=== PATIENT | male | born 1940 | race Caucasian/White ===

== ENCOUNTER 2018-07-27 22:11 | Inpatient (IN) | payer OTHER ==
[~2018-07-27] VITALS: Ht 165.1 cm; Wt 56.7 kg
[~2018-07-27 22:11] MED LIST: ASPI-1169 PO; ATEN25TA PO; CALC-36 PO; DULO30CA2 PO; FLUT1DIS3 INH; LAMO100T PO; LEVO50TA8 PO; LOVA40TA2 PO; METH5TAB2 PO; MIRT30TA7 PO; NORT10CA PO; OLAN15TA3 PO; OMEP20CA10 PO; TAMS0.4C34 PO; TIMO5DRO4 EACHEYE
--- NOTE | 2018-07-27 22:15 | NUR ---
MD AT BEDSIDE FOR EVALUATION
--- NOTE | 2018-07-27 22:15 | NUR ---
RADIOLOGY AT BEDSIDE FOR CXR
--- NOTE | 2018-07-27 22:15 | NUR ---
PT BIBRA FROM HOME FOR SEVERE SOB. O2 SAT RA 76%, PT ARRIVED ON CPAP. PT RESPONDS TO PAINFUL STIMULI. SKIN COOL AND INTACT. PT PLACED IN GOWN AND ON MONITOR. RT AT BEDSIDE ON ARRIVAL AND ON BIPAP: 15/5, RATE 18, FIO2 100.
[2018-07-27 22:20] VITALS: BP 94/54
--- NOTE | 2018-07-27 22:20 | NUR ---
INITIATED IV SITE RIGHT UPPER ARM 18G. LABS DRAWN FROM SITE. INTACT AND PATENT, CONVERTED TO SALINE LOCK. LAB CALLED FOR SMALL BUSINESS CONSULTANT.
--- NOTE | 2018-07-27 22:25 | NUR ---
BIPAP SETTINGS: 25/5, RATE 18, FIO2 100
[2018-07-27] MEDS ORDERED: LEVOFLOXACIN 750 MG /D5W 150ML 150 ML IV ONE ×2 (22:30→22:33)
[2018-07-27] MEDS ORDERED: AZITHROMYCIN 500 MG in IV D5W 250 ML IV ONE (22:30)
[2018-07-27] MEDS ORDERED: IPRATROPIUM NEB FS 0.5 MG/2.5 ML AMPUL.NEB NEB ONE (22:30)
[2018-07-27] MEDS ORDERED: methylPREDNISolone SOD SUCC 125 MG/2ML VIAL IV ONE (22:30)
[2018-07-27] MEDS ORDERED: ALBUTEROL FS 2.5 MG/3 ML VIAL.NEB CONTNEB ONE (22:30)
[2018-07-27] MEDS ORDERED: IV NS 0.9% 1,000 ML BAG IV ONE (22:30)
[2018-07-27] MEDS ORDERED: IPRATROPIUM NEB FS 0.5 MG/2.5 ML AMPUL.NEB ONE (22:31)
[2018-07-27] MEDS ORDERED: ALBUTEROL FS 2.5 MG/3 ML VIAL.NEB ONE (22:31)
[2018-07-27] MEDS ORDERED: methylPREDNISolone SOD SUCC 125 MG/2ML VIAL ONE (22:33)
[2018-07-27] MEDS ORDERED: AZITHROMYCIN 500 MG VIAL ONE (22:33)
[2018-07-27 22:47] LABS: BASOPHILS % (AUTO) 0.4 % (0.0-2.0); HEMATOCRIT 34 % (39-51); HEMOGLOBIN 10.7 g/dL (13.5-17.5); LYMPHOCYTES # (AUTO) 2.1 /CMM (0.8-4.8); LYMPHOCYTES % (AUTO) 45.3 % (20.0-44.0); MEAN CORPUSCULAR HGB CONC 32 g/dl (31.0-36.0); MEAN CORPUSCULAR VOLUME 109 fL (80-96); MONOCYTES # (AUTO) 0.8 /CMM (0.1-1.30); MONOCYTES % (AUTO) 16.8 % (2.0-12.0); NEUTROPHILS # (AUTO) 1.5 /CMM (1.8-8.9); NEUTROPHILS % (AUTO) 33.5 % (43.0-81.0); PLATELET COUNT (AUTO) 218 /CMM (150-450); RDW COEFFICIENT OF VARIATION 15.3 (11.5-15.0); RED BLOOD CELL COUNT(AUTO) 3.11 MIL/uL (4.5-6.0); WHITE BLOOD COUNT (AUTO) 4.6 K/uL (4.3-11.0)
--- NOTE | 2018-07-27 22:50 | NUR ---
URINE COLLECTED CALLED VIA F/C PER MD ORDER, CALLED LAB FOR CLAIM AUDITOR.
[2018-07-27 22:51] LABS: ABG BASE EXCESS -0.7 mmol/L; ABG OXYGEN SATURATION 99.1 % (92.0-98.5); ABG PH 7.264 (7.350-7.450); ABG PO2 388.1 mmHg (75.0-100.0); AaDO2 263.9 mmHg; COHb 0.1 % (0.5-1.5); MetHb 0.5 % (0.0-1.5); O2Hb 98.5 % (94.0-97.0); SITE, ABG Right Radial; VENT MODE, BG S/T 18 15/5 100%
[2018-07-27 22:52] LABS: CALCIUM, SERUM 9.3 mg/dL (8.5-10.1); CARBON DIOXIDE 30 mmol/L (21-32); CHLORIDE 99 mmol/L (98-107); CREATININE 1.2 mg/dL (0.6-1.3); GLUCOSE 146 mg/dL (74-106); POTASSIUM 4.8 mmol/L (3.5-5.1); SODIUM SERUM 136 mmol/L (136-145); UREA NITROGEN, BLOOD 22 mg/dL (7-18)
--- NOTE | 2018-07-27 22:54 | NUR ---
RT AT BEDSIDE SPEAKING TO DR. PEPE REGARDING ABG RESULTS, PER MY FOR RECHECK ABG X 1 HR
[2018-07-27 22:59] LABS: D-DIMER 1.91 mg/L(FEU (0.17-0.50); INR 0.99 (0.87-1.13)
[2018-07-27 23:00] LABS: TROPONIN I 0.147 ng/mL (0.00-0.056)
[2018-07-27 23:06] LABS: APPEARANCE,URINE CLEAR (CLEAR); BILIRUBIN,URINE NEGATIVE (NEGATIVE); BLOOD, URINE 2+ Ery/uL (NEGATIVE); COLOR,URINE YELLOW (YELLOW); KETONES,URINE NEGATIVE (NEGATIVE); LEUKOCYTE ESTERASE ,URINE NEGATIVE (NEGATIVE); NITRITE, URINE NEGATIVE (NEGATIVE); PROTEIN,URINE NEGATIVE (NEGATIVE); UGLUCOSE NEGATIVE (NEGATIVE); UROBILINOGEN,URINE 0.2 EU/dL (0.2)
[2018-07-27 23:07] LABS: ALANINE AMINOTRANSFERASE 13 U/L (12-78); ALBUMIN 2.7 g/dL (3.4-5.0); ALKALINE PHOSPHATASE 93 U/L (46-116); ASPARTATE AMINOTRANSFERASE 21 U/L (15-37); B-TYPE NATRIURETIC PEPTIDE 4466 PG/ML (0-125); BILIRUBIN,DIRECT 0.1 mg/dL (0.0-0.2); BILIRUBIN,TOTAL 0.3 mg/dL (0.2-1.0); TOTAL PROTEIN, SERUM 9.9 g/dL (6.4-8.2)
--- NOTE | 2018-07-27 23:10 | NUR ---
PER VERBAL MD ORDER, DC IV FLUIDS
[2018-07-27 23:14] LABS: BACTERIA,URINE None seen /HPF (None Seen); SQUAMOUS EPITHELIAL CELL,UR Few /HPF (None Seen); WBC,URINE 0-2 /HPF (0-3)
--- NOTE | 2018-07-27 23:16 | NUR ---
PT RECEIVED FROM FIRE RESCUE ON CPAP. PT PLACED ON BIPAP S/T 18/03 100%. PT PLACED ON ALBUTEROL TX PER MD ORDER. ABG OBTAINED. PRESSURE SUPPORT INCREASED TO 20 POST ABG RESULTS. Addendum: 07/27/18 at 2319 by TRISH ARIAS RT Amended: Links added.
[2018-07-27] MEDS ORDERED: FUROSEMIDE 20 MG/2 ML VIAL ONE (23:24)
[2018-07-27] MEDS ORDERED: DOBUTamine 12.5 MG/ML VIAL IV ONE (23:24)
[2018-07-27 23:29] LABS: EOSINOPHILS % (MANUAL) 4 % (0-4); LYMPHOCYTES % (MANUAL) 48 % (16-48); MONOCYTES % (MANUAL) 12 % (0-11.0); NEUTROPHILS % (MANUAL) 36 (42-76)
[2018-07-27] MEDS ORDERED: D5W IV ONE (23:30)
[2018-07-27] MEDS ORDERED: DOBUTAMINE IV ONE (23:30)
[2018-07-27] MEDS ORDERED: FUROSEMIDE 20 MG/2 ML VIAL IV SCH (23:30)
--- NOTE | 2018-07-27 23:30 | NUR ---
BP LEFT ARM 73/49. RIGHT ARM 107/67. AWARE
[2018-07-27] MEDS ORDERED: IV NS 0.9% 250 ML IV ONE (23:42)
[2018-07-27] MEDS ORDERED: IOHEXOL-350 100 ML VIAL IV ONE (23:42)
[2018-07-27] MEDS ORDERED: CT SWABBABLE VALVE TRANS SET 1 EA INFUS.SET MC ONE (23:42)
--- NOTE | 2018-07-27 23:48 | NUR ---
BP RIGHT ARM 118/62. LEFT ARM 116/66. AWARE
[2018-07-28] VITALS (102 sets, daily range): BP systolic 68–127; BP diastolic 23–81
[2018-07-28] MEDS ORDERED: NITROGLYCERIN PACKET 1 GM PACKET TD ONE
--- NOTE | 2018-07-28 00:03 | NUR ---
BP LEFT ARM: 82/51, RIGHT ARM: 91/44. AWARE
--- NOTE | 2018-07-28 00:09 | NUR ---
PT TO CT ACCOMPANIED BY RN AND RT
--- NOTE | 2018-07-28 00:34 | NUR ---
BP LEFT ARM 131/27, RIGHT ARM 115/64. AWARE
[2018-07-28] MEDS ORDERED: NITROGLYCERIN PACKET 1 GM PACKET ONE (00:51)
--- NOTE | 2018-07-28 00:55 | NUR ---
BP RIGHT AM 109/56 LEFT ARM 70/55. MD AWARE. PER VERBAL MD ORDER, D/C NITRO PACK
[2018-07-28 01:05] LABS: ABG BASE EXCESS -2.2 mmol/L; ABG OXYGEN SATURATION 99.3 % (92.0-98.5); ABG PCO2 65.7 mmHg (35.0-45.0); ABG PH 7.217 (7.350-7.450); ABG PO2 340.4 mmHg (75.0-100.0); AaDO2 306.9 mmHg; COHb 0.5 % (0.5-1.5); MetHb 0.6 % (0.0-1.5); O2Hb 98.2 % (94.0-97.0); SITE, ABG Right Brachial; VENT MODE, BG S/T 18 25/5 100%
--- NOTE | 2018-07-28 01:07 | NUR ---
GAVE REPORT TO ELEONORA SANTOS FOR AMPARO
--- NOTE | 2018-07-28 01:16 | NUR ---
RN NOTE RECEIVED REPORT FROM EMRE ED RN FOR CONTINUITY OF CARE. AWAITING PT ARRIVAL.
[2018-07-28] MEDS ORDERED: PROPOFOL 100 ML IV ONE (01:23)
[2018-07-28] MEDS ORDERED: PROPOFOL 100 ML ONE (01:25)
[2018-07-28] MEDS ORDERED: ETOMIDATE 2 MG/ML VIAL IV ONE ×2 (01:30→08:22)
[2018-07-28] MEDS ORDERED: SUCCINYLCHOLINE CHLORIDE 20 MG/ML VIAL IV ONE ×2 (01:30→08:22)
[2018-07-28] MEDS ORDERED: ACETAMINOPHEN 325 MG TABLET PO PRN (02:00)
[2018-07-28] MEDS ORDERED: MORPHINE SULFATE INJ 2 MG/ML DISP.SYRIN IV PRN (02:00)
--- NOTE | 2018-07-28 02:10 | NUR ---
RN NOTE RECEIVED PT IN NO ACUTE DISTRESS IN BED. PT IS SEDATED ON PROPOFOL. PT IS ON MECHANICAL VENTILATION VIA ETT 7.03/24 AT THE TEETH. PT TOLERATING VENT SETTING WELL @ AC 20, TV 450, FIO2 60, PEEP 5. PT HAS O2 SAT @ 100%. PT HAS F/C THAT IS CLEAN DRY INTACT AND PATENT WITH CLEAR YELLOW URINE DRAINING. PT IS ON TELE MONITORING WITH SR WITH BBB. PT HAS LEFT UPPER ARM 18G THAT IS CLEAN DRY INTACT AND PATENT WITH PROPOFOL @ 20MCG. PT HAS L HAND 20G THAT IS CLEAN DRY INTACT AND PATENT WITH LEVAQUIN RUNNING. PT HAS RAC 20G THAT IS CLEAN DRY INTACT AND PATENT WITH DOBUTAMINE @ 15 MCG INFUSING. NO ADVERSE REACTIONS TO MEDICATION NOTED. BED IN LOW LOCK POSITION WITH RIALS UP X 2. CALL LIGHT WITHIN REACH AND ALL SAFETY MEASURES ENSURED AND CARRIED OUT. WILL CONTINUE TO MONITOR PT.
--- NOTE | 2018-07-28 02:15 | NUR ---
RN NOTE RESTRAINTS PLACED ON PATIENT WITH FREQUENT CIRCULATION CHECKS.
--- NOTE | 2018-07-28 02:18 | NUR ---
PT TRANSFERRED TO ICU 257 WITH RT, EMT, AND RN PER ACLS PROTOCOL
[2018-07-28] MEDS ORDERED: DOBUTamine 500 MG in IV D5W 210 ML IV PRN (02:30)
--- NOTE | 2018-07-28 02:30 | NUR ---
RN NOTE NG TUBE PLACED PER DR. KRUSE ORDERS. POSITIVE PLACEMENT WITH AUSCULTATING AIR PUSHED INTO STOMACH MAKING A GURGLING SOUND AND ASPIRATION OF STOMACH CONTENT.
[2018-07-28] MEDS ORDERED: ALBU18HF2 INH (02:55)
[2018-07-28] MEDS ORDERED: PRED5DRO16 EACHEYE (02:55)
[2018-07-28] MEDS ORDERED: MORP30TA7 PO (02:55)
[2018-07-28] MEDS ORDERED: TIOT4MIS2 IH (02:55)
[2018-07-28] MEDS ORDERED: OLAN5TAB3 PO (02:55)
[2018-07-28] MEDS ORDERED: FLUT16SP BNOSTRILS (02:55)
[2018-07-28] MEDS ORDERED: HYDR4TAB4 PO (02:55)
[2018-07-28] MEDS ORDERED: IV NS 0.9% 100 ML IV ONE (03:00)
[2018-07-28] MEDS ORDERED: PIPERACILLIN /TAZOBACTAM 3.375 G in IV D5W 50 ML IV SCH ×2 (03:00→13:00)
[2018-07-28] MEDS ORDERED: PIPERACILLIN /TAZOBACTAM 3.375 G VIAL IV ONE (03:02)
[2018-07-28] MEDS ORDERED: VANCOMYCIN 1 GM VIAL ONE (03:03)
--- NOTE | 2018-07-28 03:11 | NUR ---
PT INTUBATED POST ABG RESULTS PER MD ORDER.PT PLACED ON CHARTED SETTINGS. ETT SECURED VIA ANCHOR FAST. AMBU BAG AT BEDSIDE ALARMS SET AND AUDIBLE. DISCONNECT ALARMS CHECKED. VENT PLUGGED INTO RED OUTLET. Addendum: 07/28/18 at 0313 by TRISH ARIAS RT Amended: Links added.
[2018-07-28] MEDS ORDERED: VANCOMYCIN 1 GM in IV D5W 250ml IV ONE (03:30)
[2018-07-28] MEDS: PROPOFOL 100 ML IV PRN ×4 (03:31→20:54)
[2018-07-28] MEDS: DOBUTamine 500 MG in IV D5W 210 ML IV PRN ×4 (03:42→20:45)
[2018-07-28 04:20] LABS: BASOPHILS % (AUTO) 0.2 % (0.0-2.0); EOSINOPHILS % (AUTO) 0.5 % (0.0-6.0); HEMATOCRIT 28 % (39-51); HEMOGLOBIN 8.6 g/dL (13.5-17.5); LYMPHOCYTES # (AUTO) 0.5 /CMM (0.8-4.8); LYMPHOCYTES % (AUTO) 19.5 % (20.0-44.0); MEAN CORPUSCULAR HGB CONC 31 g/dl (31.0-36.0); MEAN CORPUSCULAR VOLUME 109 fL (80-96); MONOCYTES # (AUTO) 0.2 /CMM (0.1-1.30); MONOCYTES % (AUTO) 6.7 % (2.0-12.0); NEUTROPHILS % (AUTO) 73.1 % (43.0-81.0); PLATELET COUNT (AUTO) 190 /CMM (150-450); RDW COEFFICIENT OF VARIATION 15.6 (11.5-15.0); RED BLOOD CELL COUNT(AUTO) 2.57 MIL/uL (4.5-6.0); WHITE BLOOD COUNT (AUTO) 2.7 K/uL (4.3-11.0)
[2018-07-28 04:33] LABS: ALANINE AMINOTRANSFERASE 10 U/L (12-78); ALBUMIN 2.1 g/dL (3.4-5.0); ALKALINE PHOSPHATASE 79 U/L (46-116); ASPARTATE AMINOTRANSFERASE 19 U/L (15-37); BILIRUBIN,TOTAL 0.3 mg/dL (0.2-1.0); CALCIUM, SERUM 8.9 mg/dL (8.5-10.1); CARBON DIOXIDE 31 mmol/L (21-32); CHLORIDE 99 mmol/L (98-107); CREATININE 1.2 mg/dL (0.6-1.3); GLUCOSE 138 mg/dL (74-106); MAGNESIUM 1.9 mg/dL (1.8-2.4); PHOSPHORUS 3.4 mg/dL (2.5-4.9); POTASSIUM 4.4 mmol/L (3.5-5.1); SODIUM SERUM 135 mmol/L (136-145); TOTAL PROTEIN, SERUM 8.1 g/dL (6.4-8.2); UREA NITROGEN, BLOOD 22 mg/dL (7-18)
[2018-07-28 04:34] LABS: IRON, SERUM 61 ug/dl (50-175); TOTAL IRON BINDING CAPACITY 180 ug/dl (250-450)
[2018-07-28 04:42] LABS: CHOLESTEROL 105 mg/dL (<200); HDL CHOLESTEROL 37 mg/dL (40-60); LDL 65 mg/dL (0-99); THYROID STIMULATING HORMONE 4.769 uIU/mL (0.358-3.74); TRIGLYCERIDES 35 mg/dL (30-150)
[2018-07-28 04:47] LABS: ABG BASE EXCESS 5.3 mmol/L; ABG OXYGEN SATURATION 97.2 % (92.0-98.5); ABG PCO2 48.1 mmHg (35.0-45.0); ABG PH 7.419 (7.350-7.450); ABG PO2 110.5 mmHg (75.0-100.0); AaDO2 264.4 mmHg; COHb 0.3 % (0.5-1.5); MetHb 0.8 % (0.0-1.5); O2Hb 96.1 % (94.0-97.0); PEEP,BG 5 cm H2O; SITE, ABG Right Radial
--- NOTE | 2018-07-28 04:48 | NUR ---
ABG DONE. RN NOTIFIED WITH THE RESULT.
--- NOTE | 2018-07-28 07:15 | NUR ---
RN INITIAL NOTES RECEIVED PT INTUBATED, ON VENT. NO RESPIRATORY DISTRESS NOTED. NO SOB NOTED. NO SIGNS OF PAIN NOTED. PT SEDATED. ON DIPRIVAN AT 40MCG/KG /MIN. IV LINE IN PLACE. PT ON DOBUTAMINE 15MCG/KG/MIN. WILL TITRATE ACCORDINGLY. FC IN PLACE. NO HEMATURIA NOTED. BLE ELEVATED. PT COMFORTABLE. WILL CONTINUE TO MONITOR.
[2018-07-28] MEDS: LEVALBUTEROL HCL NEB 1.25 MG/0.5 ML VIAL.NEB NEB SCH ×3 (07:37→19:25)
[2018-07-28] MEDS: IPRATROPIUM NEB FS 0.5 MG/2.5 ML AMPUL.NEB NEB SCH ×3 (07:37→19:25)
[2018-07-28] MEDS ORDERED: FEE PK DOSING 1 MIN EA MC ONE (07:45)
[2018-07-28] MEDS: PANTOPRAZOLE 40 MG VIAL IV SCH (08:09)
[2018-07-28] MEDS: ACIDOPHILUS/BULGARICUS 1 EACH TAB.CHEW NG SCH ×2 (08:10→16:56)
[2018-07-28] MEDS: ASPIRIN 81 MG TAB.CHEW NG SCH (08:10)
[2018-07-28] MEDS ORDERED: FUROSEMIDE 20 MG/2 ML VIAL IV SCH (09:00)
--- NOTE | 2018-07-28 09:30 | NUR ---
RN NOTES 899 SEEN AND EXAMINED BY DR DIAMOND. PT INTUBATED, ON VENT. NO RESPIRATORY DISTRESS NOTED. NO SOB NOTED. HOB ELEVATED. PT ON DOBUTAMINE AND DIPRIVAN, WILL TITRATE ACCORDINGLY. AWARE OF CURRENT LAB VALUES AND CXR RESULT. WILL CONTINUE TO MONITOR. 929 SEEN AND EXAMINED BY PHYLLIS GUERRERO. AWARE OF LAB VALUES: WBC 2.7, HGB 8.6, HCT 28, PLATELET 190, SODIUM 135, BUN 22 AND TROPONIN 0.148. ALSO AWARE OF IMAGING STUDIED. PT ON DIPRIVAN AND DOBUTAMINE DRIP, WILL TITRATE ACCORDINGLY. PT SEDATION VACATION DONE. PT ON DIPRIVAN AT 2OMCG/KG/MIN, AWAKE, A/OX1 AND ABLE TO FOLLOW SIMPLE COMMANDS. NOTED WITH AGITATION, TRYING TO PULL OUT ETT. WILL INCREASE DIPRIVAN ACCORDINGLY. WILL CONTINUE TO MONITOR.
[2018-07-28 10:49] LABS: BASOPHILS % (AUTO) 0.3 % (0.0-2.0); EOSINOPHILS % (AUTO) 0.5 % (0.0-6.0); HEMATOCRIT 24 % (39-51); HEMOGLOBIN 8.1 g/dL (13.5-17.5); LYMPHOCYTES # (AUTO) 0.5 /CMM (0.8-4.8); LYMPHOCYTES % (AUTO) 17.3 % (20.0-44.0); MEAN CORPUSCULAR HGB CONC 34 g/dl (31.0-36.0); MEAN CORPUSCULAR VOLUME 103 fL (80-96); MONOCYTES # (AUTO) 0.2 /CMM (0.1-1.30); MONOCYTES % (AUTO) 9.1 % (2.0-12.0); NEUTROPHILS % (AUTO) 72.8 % (43.0-81.0); PLATELET COUNT (AUTO) 171 /CMM (150-450); RDW COEFFICIENT OF VARIATION 14.1 (11.5-15.0); RED BLOOD CELL COUNT(AUTO) 2.34 MIL/uL (4.5-6.0); WHITE BLOOD COUNT (AUTO) 2.7 K/uL (4.3-11.0)
--- NOTE | 2018-07-28 11:04 | NUR ---
WOUND CARE CONSULT: PT PRESENTS WITH LEFT ANKLE ULCER, PRESENT ON ADMISSION. RECOMMEND DPM CONSULT. PT IS INTUBATED. LUBA BAR NOTED. ALL SKIN PROTECTION AND WOUND CARE RECOMMENDATIONS DISCUSSED WITH NURSING STAFF. WILL SEE PRN. [place] IN AGREEMENT WITH PLAN OF CARE. PT ON [facility]. Addendum: 07/28/18 at 1106 by ROSANNE YOUNG WNDNU Amended: Links added.
[2018-07-28 11:39] LABS: BAND % (MANUAL) 7 % (0.0-5.0); LYMPHOCYTES % (MANUAL) 16 % (16-48); MONOCYTES % (MANUAL) 11 % (0-11.0); NEUTROPHILS % (MANUAL) 66 (42-76)
[2018-07-28] MEDS: PIPERACILLIN /TAZOBACTAM 3.375 G in IV D5W 50 ML IV SCH ×3 (12:08→23:33)
[2018-07-28] MEDS: FUROSEMIDE 40 MG/4 ML VIAL IV SCH ×3 (12:08→20:08)
--- NOTE | 2018-07-28 13:00 | NUR ---
RN NOTES NOTIFIED PHYLLIS GUERRERO REGRADING PT'S SBP BET LOW 80-90S. PT ON DOBUTAMINE AT 20MCG/KG/MIN, MAX OUT. PT ON DIPRIVAN AT 30MCG/KG/MIN. ALSO UPDATED ON PT'S LATEST HGB 8.1 AND HCT 24 LEVEL. MASONRY CONTRACTOR ORDERED LEVOPHED PRN FOR MAP >60. PARAMETER OF DOBUTAMINE CHANGED WELL. WILL CLOSELY MONITOR.
[2018-07-28] MEDS: MORPHINE SULFATE INJ 4 MG/ML DISP.SYRIN IV PRN (13:30)
[2018-07-28] MEDS: LORAZEPAM INJ 2 MG/ML VIAL IV PRN (13:39)
--- NOTE | 2018-07-28 14:55 | NUR ---
RN NOTES NOTIFIED DR VALDEZ REGARDING PT'S HR FLUCTUATES FROM 115 TO 120S. PT ON DOBUTAMINE AT 20MCG/KG/MIN. MAP KEPT >60 ORDERED. ON DIPRIVAN AT 20MCG/KG/MIN. MORPHINE GIVEN ORDERED. STAT EKG ORDERED. RESULT RELAYED TO DR VALDEZ AND DR RAMIREZ. AWAITING FOR DR RAMIREZ'S CALL BACK. WILL CONTINUE TO MONITOR.
[2018-07-28] MEDS: VANCOMYCIN 0.75 GM in IV D5W 250 ML IV SCH (15:51)
[2018-07-28] MEDS: NOREPINEPHRINE 16 MG in IV D5W 500 ML IV PRN (17:47)
--- NOTE | 2018-07-28 18:23 | NUR ---
RT END OF THE SHIFT REPORT, PT. 78 Y OLD MALE, INTUBATED WITH ETT # 7.5 @21 CM LIP LINE. WITH NOTED SETTINGS ON VENT, ALARMS SET AND FUNCTIONAL, B/S RALES SUX'D FOR MINIMAL AMT WHITE SECRETIONS AND EQUAL CHEST RISE NOTED, PEEP OFF TO [address] DIAMOND ORDER @6175 PT. CHANDAN. WELL AND NO OTHER RESPIRATORY DISTRESS NOTED. PT REMAIN STABLE WILL CONTINUE FOR MONITOR AND AMBU BAG REMAIN AT TH BEDSIDE. Addendum: 07/28/18 at 1825 by CHANCE CHATMAN RT Amended: Links added.
--- NOTE | 2018-07-28 18:31 | NUR ---
RN CLOSING NOTES PT REMAINS INTUBATED, ON VENT. NO RESPIRATORY DISTRESS NOTED. NO SOB NOTED. NO SIGNS OF PAIN NOTED. PICC LINE IN PLACE. PT ON DIPRIVAN, LEVO AND DOBUTAMINE DRIP. TITRATED ACCORDINGLY. FC IN PLACE. KEPT CLEAN AND DRY. REPOSITIONED Q2. KEPT COMFORTABLE. WILL ENDORSE FOR CONTINUITY OF CARE.
--- NOTE | 2018-07-28 20:00 | NUR ---
Received patient sedated on Diprivan gtt on full vent support at prescribed settings. No acute distress noted.Afebrile.Per monitor ST with BBB 115-120'S.Hemodynamically unstable.Patient on Dobutamine gtt max @ 20 mcg and Levophed gtt at 3 mcg and will titrate accordingly to keep MAP > 60.Keep NPO with NGT R nares clamped.Placement verified. FC to gravity.Patient with good response to lasix diuresing good volume of clear yellow urine. Turned and repositioned.Continue monitoring.
--- NOTE | 2018-07-28 22:00 | NUR ---
Patient agitated.Diprivan gtt titrated.Turned and repositioned.
[2018-07-29] VITALS (115 sets, daily range): BP systolic 73–134; BP diastolic 49–91
--- NOTE | 2018-07-29 | NUR ---
Patient resting .VS stable.RT,Francisco at bedside.FIO2 titrated down to 50%.Patient tolerating well.
[2018-07-29] MEDS: IPRATROPIUM NEB FS 0.5 MG/2.5 ML AMPUL.NEB NEB SCH ×4 (01:28→19:39)
[2018-07-29] MEDS: LEVALBUTEROL HCL NEB 1.25 MG/0.5 ML VIAL.NEB NEB SCH ×2 (01:28→07:51)
[2018-07-29] MEDS: DOBUTamine 500 MG in IV D5W 210 ML IV PRN (02:46)
[2018-07-29] MEDS: PROPOFOL 100 ML IV PRN ×5 (03:18→23:59)
[2018-07-29] MEDS: VANCOMYCIN 0.75 GM in IV D5W 250 ML IV SCH ×2 (04:11→17:58)
[2018-07-29 04:21] LABS: BASOPHILS # (AUTO) 0.1 /CMM (0.0-0.2); BASOPHILS % (AUTO) 1.2 % (0.0-2.0); EOSINOPHILS % (AUTO) 0.4 % (0.0-6.0); HEMATOCRIT 26 % (39-51); HEMOGLOBIN 9.1 g/dL (13.5-17.5); LYMPHOCYTES # (AUTO) 1.4 /CMM (0.8-4.8); MEAN CORPUSCULAR HGB CONC 35 g/dl (31.0-36.0); MEAN CORPUSCULAR VOLUME 104 fL (80-96); MONOCYTES # (AUTO) 1.1 /CMM (0.1-1.30); MONOCYTES % (AUTO) 24.7 % (2.0-12.0); NEUTROPHILS # (AUTO) 1.8 /CMM (1.8-8.9); NEUTROPHILS % (AUTO) 41.7 % (43.0-81.0); PLATELET COUNT (AUTO) 176 /CMM (150-450); RDW COEFFICIENT OF VARIATION 14.6 (11.5-15.0); RED BLOOD CELL COUNT(AUTO) 2.54 MIL/uL (4.5-6.0); WHITE BLOOD COUNT (AUTO) 4.4 K/uL (4.3-11.0)
[2018-07-29 04:47] LABS: ALANINE AMINOTRANSFERASE 10 U/L (12-78); ALBUMIN 2.1 g/dL (3.4-5.0); ALKALINE PHOSPHATASE 75 U/L (46-116); ASPARTATE AMINOTRANSFERASE 16 U/L (15-37); BILIRUBIN,TOTAL 0.4 mg/dL (0.2-1.0); CALCIUM, SERUM 8.3 mg/dL (8.5-10.1); CARBON DIOXIDE 34 mmol/L (21-32); CHLORIDE 94 mmol/L (98-107); CREATININE 1.4 mg/dL (0.6-1.3); GLUCOSE 120 mg/dL (74-106); MAGNESIUM 1.6 mg/dL (1.8-2.4); PHOSPHORUS 3.8 mg/dL (2.5-4.9); POTASSIUM 3.1 mmol/L (3.5-5.1); SODIUM SERUM 132 mmol/L (136-145); TOTAL PROTEIN, SERUM 8.1 g/dL (6.4-8.2); UREA NITROGEN, BLOOD 18 mg/dL (7-18)
[2018-07-29 04:48] LABS: TROPONIN I 0.188 ng/mL (0.00-0.056)
[2018-07-29] MEDS: PIPERACILLIN /TAZOBACTAM 3.375 G in IV D5W 50 ML IV SCH ×4 (05:32→23:59)
[2018-07-29] MEDS: MORPHINE SULFATE INJ 4 MG/ML DISP.SYRIN IV PRN (05:57)
--- NOTE | 2018-07-29 06:30 | NUR ---
Patient resting.Pain medication administered as prn.All due medications given.AM care done. Dobutamine maintained at 20 mcg and Levophed gtt at 11 mcg.Diprivan gtt at 35 mcg. VS stable.Turned and repositioned.
--- NOTE | 2018-07-29 07:51 | NUR ---
RT PT RECEIVED ORALLY INTUBATED WITH A 7.5 ETT SECURED AT 21CM AT THE LIP LINE. PT RESPONDS TO STIMULI WHEN SX'D. VENT ALARMS ARE SET AND AUDIBLE WITH BVM BY BEDSIDE . EQUIPMENT DETAILER CUFF PRESSURE NOTED. VENT IS PLUGGED INTO RED OUTLET. PT SX'D SMALL THICK PALE YELLOW SECRETIONS. NO RESPIRATORY DISTRESS NOTED AT THIS TIME, WILL CONTINUE TO MONITOR. Addendum: 07/29/18 at 12 by DONAVAN SIMON RT Amended: Links added.
[2018-07-29] MEDS: ACIDOPHILUS/BULGARICUS 1 EACH TAB.CHEW NG SCH ×2 (08:09→17:16)
[2018-07-29] MEDS: ASPIRIN 81 MG TAB.CHEW NG SCH (08:09)
[2018-07-29] MEDS: PANTOPRAZOLE 40 MG VIAL IV SCH (08:09)
[2018-07-29] MEDS: POTASSIUM CL. PREMIX PERIPHER. 50 ML IV SCH ×4 (08:10→13:02)
[2018-07-29] MEDS: DAKINS QUARTER STRENGTH (0.125%) 480 ML BOTTLE TOP SCH (08:11)
--- NOTE | 2018-07-29 10:53 | NUR ---
RN NOTE 0720: Received patient, sedated. With ETT to vent, tolerated settings well. No respiratory distress noted at this time. With right NGT intact, clamped. on Dobutamine and Levo, will titrate as ordered. Knutson cath itnact, noted with clebrandi pale colored urine drained to BSD. JW PICC intact, on Diprivan @ 40mcg. ST 120's on the monitor. 0800: S/E by Dr. Macedo, with order to titrate off Dobutamine and change to Dopamine if needed second pressor. 0830: S/E by Dr. Jonas, no new order at this time. 0915: Dobutamine off, On levo @ 14mcg, will titrate as ordered. Rendered sedation vacation, able to respond to verbal stimuli on 30mcg Diprivan, follows commands. Noted with episode of moderate agitation, titrated Diprivan to 50mcg, will continue to monitor. 1050: No any significant changes noted at this time. Kept clean, warm and dry. Needs attended.
--- NOTE | 2018-07-29 11:04 | NUR ---
LEVOPHED GTT OFF DUE TO AIR ACCUMULATION, BP DROPPED TO 56/38, PT PLACED IN REV-TREND. POSITION LEVOPHED GTT TITRATED UP PER PROTOCOL. NOW AT 15 MICS. BP 108/64
[2018-07-29] MEDS: ALBUTEROL HALF STRENGTH 1.25 MG/3 ML VIAL.NEB NEB SCH ×2 (13:12→19:39)
[2018-07-29] MEDS: Magnesium 1GM/D5W 100ML PREMIX 100 ML IV SCH ×3 (13:25→17:10)
[2018-07-29] MEDS: NOREPINEPHRINE 16 MG in IV D5W 500 ML IV PRN (13:36)
[2018-07-29 15:57] LABS: APPEARANCE,URINE CLEAR (CLEAR); BILIRUBIN,URINE NEGATIVE (NEGATIVE); BLOOD, URINE NEGATIVE Ery/uL (NEGATIVE); COLOR,URINE YELLOW (YELLOW); KETONES,URINE NEGATIVE (NEGATIVE); LEUKOCYTE ESTERASE ,URINE NEGATIVE (NEGATIVE); NITRITE, URINE NEGATIVE (NEGATIVE); PH,URINE 7.5 (5.0-8.0); PROTEIN,URINE NEGATIVE (NEGATIVE); UGLUCOSE NEGATIVE (NEGATIVE); UROBILINOGEN,URINE 0.2 EU/dL (0.2)
[2018-07-29 16:06] LABS: CREATININE, URINE < 13.0 MG/DL (30.0-125.0); URINE SODIUM, RANDOM 48 mmol/l (40-220); URINE TOTAL PROTEIN 15.4 mg/dL (0-11.9)
[2018-07-29] MEDS: ACETAMINOPHEN 650 MG/20.3 ML UDC NG PRN (17:15)
[2018-07-29 18:16] LABS: EOSINOPHIL,URINE None Seen
[2018-07-29] MEDS ORDERED: DOPamine 400 MG in IV D5W 250 ML IV PRN (18:30)
--- NOTE | 2018-07-29 18:38 | NUR ---
RN NOTE 1700: Temp 100.5, Tylenol given as ordered, rendered cooling measures. 1830: No any significant changes noted. ETT to vent with 40% FIO2, no respiratory distress noted. On Levo @ 15mcg, Diprivan @ 50mcg. Kept clean, warm and dry. Needs attended.
--- NOTE | 2018-07-29 20:00 | NUR ---
Received patient remains sedated on Diprivan gtt at 50 mcg .With ET to mechanical vent support.Tolerating vent settings well SPO2 100% and secretions suctioned PRN.ST with BBB per monitor.Levophed gtt at 15 mcg for BP support infusing via dannielle picc line and will titrate accordingly.Site intact.Remains npo with NGT patent and clamped.Patient diuresing well to FC via gravity.Turned and repositioned.No distress noted.Continue monitoring.
--- NOTE | 2018-07-29 20:21 | NUR ---
RECEIVED PT INTUBATED 7.5 ETT SECURED AT 21CM AT THE LIP VIA ANCHOR FAST. NO RESP DISTRESS. TOLERATING VENT SETTINGS. SX'D FOR MOD AMT OF THICK STUART SECRETIONS. VENT ALARMS SET AND AUDIBLE. AMBU BAG AT BEDSIDE. WILL CONTINUE TO MONITOR. Addendum: 07/29/18 at 2021 by LUZ MARINA TALLEY RT Amended: Links added.
[2018-07-30] VITALS (106 sets, daily range): BP systolic 79–126; BP diastolic 35–94
--- NOTE | 2018-07-30 | NUR ---
Patient resting feverish T 100.6 cooling measures done.Due antibiotic administered.Turned and repositioned.
[2018-07-30] MEDS: ALBUTEROL HALF STRENGTH 1.25 MG/3 ML VIAL.NEB NEB SCH ×4 (01:14→19:47)
[2018-07-30] MEDS: IPRATROPIUM NEB FS 0.5 MG/2.5 ML AMPUL.NEB NEB SCH ×4 (01:14→19:47)
[2018-07-30] MEDS ORDERED: IV NS 0.9% 250 ML IV ONE (02:30)
[2018-07-30] MEDS: VANCOMYCIN 0.75 GM in IV D5W 250 ML IV SCH (04:00)
[2018-07-30] MEDS: ACETAMINOPHEN 650 MG/20.3 ML UDC NG PRN (04:07)
[2018-07-30 04:11] LABS: BASOPHILS % (AUTO) 0.9 % (0.0-2.0); EOSINOPHILS % (AUTO) 1.4 % (0.0-6.0); HEMATOCRIT 34 % (39-51); HEMOGLOBIN 10.7 g/dL (13.5-17.5); LYMPHOCYTES # (AUTO) 1.5 /CMM (0.8-4.8); LYMPHOCYTES % (AUTO) 27.1 % (20.0-44.0); MEAN CORPUSCULAR HGB CONC 31 g/dl (31.0-36.0); MEAN CORPUSCULAR VOLUME 105 fL (80-96); MONOCYTES # (AUTO) 1.4 /CMM (0.1-1.30); NEUTROPHILS # (AUTO) 2.4 /CMM (1.8-8.9); NEUTROPHILS % (AUTO) 44.6 % (43.0-81.0); PLATELET COUNT (AUTO) 265 /CMM (150-450); RDW COEFFICIENT OF VARIATION 15.2 (11.5-15.0); RED BLOOD CELL COUNT(AUTO) 3.26 MIL/uL (4.5-6.0); WHITE BLOOD COUNT (AUTO) 5.4 K/uL (4.3-11.0)
[2018-07-30 04:31] LABS: ALANINE AMINOTRANSFERASE 12 U/L (12-78); ALBUMIN 2.2 g/dL (3.4-5.0); ALKALINE PHOSPHATASE 80 U/L (46-116); ASPARTATE AMINOTRANSFERASE 19 U/L (15-37); BILIRUBIN,TOTAL 0.4 mg/dL (0.2-1.0); CALCIUM, SERUM 8.9 mg/dL (8.5-10.1); CARBON DIOXIDE 31 mmol/L (21-32); CHLORIDE 97 mmol/L (98-107); CREATININE 1.2 mg/dL (0.6-1.3); GLUCOSE 151 mg/dL (74-106); MAGNESIUM 2.1 mg/dL (1.8-2.4); PHOSPHORUS 2.5 mg/dL (2.5-4.9); POTASSIUM 3.4 mmol/L (3.5-5.1); SODIUM SERUM 136 mmol/L (136-145); TOTAL PROTEIN, SERUM 8.9 g/dL (6.4-8.2); UREA NITROGEN, BLOOD 13 mg/dL (7-18)
[2018-07-30 04:34] LABS: CREATINE KINASE, TOTAL 47 U/L (39-308)
[2018-07-30] MEDS: PROPOFOL 100 ML IV PRN ×3 (04:55→19:18)
[2018-07-30] MEDS: PIPERACILLIN /TAZOBACTAM 3.375 G in IV D5W 50 ML IV SCH ×4 (05:38→23:38)
[2018-07-30] MEDS: NOREPINEPHRINE 16 MG in IV D5W 500 ML IV PRN ×2 (05:59→18:23)
--- NOTE | 2018-07-30 06:10 | NUR ---
Latest temp 99.4.Received a dose of Tylenol at 0407.ST with BBB 103-105.Levophed gtt infusing at 17 mcg and Diprivan gtt at 50 mcg.No acute distress noted.AM care done.Turned and repositioned.
[2018-07-30] MEDS: HYDROCORTISONE SOD SUCCINATE 100 MG/2 ML VIAL IV SCH ×4 (07:34→16:14)
[2018-07-30] MEDS: PANTOPRAZOLE 40 MG VIAL IV SCH (07:35)
[2018-07-30] MEDS: POTASSIUM CL. PREMIX PERIPHER. 50 ML IV SCH ×4 (07:35→10:35)
[2018-07-30] MEDS: DAKINS QUARTER STRENGTH (0.125%) 480 ML BOTTLE TOP SCH (09:37)
[2018-07-30] MEDS: ASPIRIN 81 MG TAB.CHEW NG SCH (09:37)
[2018-07-30] MEDS: ACIDOPHILUS/BULGARICUS 1 EACH TAB.CHEW NG SCH ×2 (09:37→16:14)
[2018-07-30] MEDS: IV D5/ 0.9% NACL 1,000 ML IV PRN (09:53)
--- NOTE | 2018-07-30 10:49 | NUR ---
RN NOTE 0720: Received patient sedated. With ETT to vent, tolerated settings well. With right NGT intact, clamped. ST 100's on the monitor. Knutson cath intact, noted with clear yellow urine drained to BSD. JW PICC intact, on Levo @ 15mcg, will titrate as ordered. On Diprivan @ 50mcg. 0730: Started patient to titrate off sedation for vacation and SIMV trial prep. 0820: Patient is off sedation, able to follow commands, aware for the SIMV trial. RT placed patient on SIMV as ordered. 0900: S/E by Dr. Jonas, said to place back on AC mode, keep off sedation as tolerated. 1030: S/E by Dr. Pennington, no new order at this time. 1045: Patient noted with agitation and moving a lot, will titrate sedation to make patient calm.
[2018-07-30] MEDS: VANCOMYCIN 0.75 GM in IV NS 0.9% 250 ML IV SCH (16:14)
--- NOTE | 2018-07-30 18:12 | NUR ---
RN NOTE No any significant changes noted. ETT to vent, tolerated settings. JW PICC intact, Levo @ 13mcg, SBP 90's. Diprivan @ 40 for episode of agitation, sedated at this time. Knutson cath intact, noted with clear pale yellow urine drained to BSD. Kept clean, warm and dry. Needs attended. Kept call light at reach.
--- NOTE | 2018-07-30 19:30 | NUR ---
RN NOTES RECEIVED PT SEDATED WITH DIPRIVAN. RESPONSIVE TO TACTILE STIMULI AND PAIN. WITH ETT 7.5, 21 CM AT LIP CONNECTED TO VENT SETTING AC 20 TV 450 FIO2 40% TOLERATED WELL SATURATION 100%. TELE MONITOR REVEALS ST WITH PVC'S WITH BBB. IV SITE ON JW PICC LINE WITH DIPRIVAN @ 40 LEVO AT 13 MCG/MIN AND RFA G 18 INTACT AND PATENT. BILATERAL SOFT WRIST RESTRAINT KEPT IN PLACED. KEPT PT CLEAN AND DRY. REPOSITIONED PT SKIN MANAGEMENT. KEPT CLEAN AND DRY.
--- NOTE | 2018-07-30 20:15 | NUR ---
RN NOTES PT HAD MULTIPLE COUPLETS HR 103 WILL CONTINUE TO MONITOR.
--- NOTE | 2018-07-30 20:44 | NUR ---
RECEIVED PT INTUBATED 7.5 ETT SECURED AT 21CM AT THE LIP VIA ANCHOR FAST. NO RESP DISTRESS. TOLERATING VENT SETTINGS. SX'D FOR MOD AMT OF THICK PALE SECRETIONS. VENT ALARMS SET AND AUDIBLE. AMBU BAG AT BEDSIDE. WILL CONTINUE TO MONITOR. Addendum: 07/30/18 at 2044 by LUZ MARINA TALLEY RT Amended: Links added.
[2018-07-30] MEDS: MORPHINE SULFATE INJ 4 MG/ML DISP.SYRIN IV PRN (21:36)
--- NOTE | 2018-07-30 21:40 | NUR ---
RN NOTES PT RUN WITH 10 TOO MANY PVC'S AND BIGEMINY HR 108, PAIN MEDICINE GIVEN PRN. WILL CONTINUE TO MONITOR.
[2018-07-30] MEDS ORDERED: VANCOMYCIN 0.75 GM in IV D5W 250 ML IV SCH (22:00)
[2018-07-31] VITALS (107 sets, daily range): BP systolic 55–136; BP diastolic 27–90
[2018-07-31] MEDS: IPRATROPIUM NEB FS 0.5 MG/2.5 ML AMPUL.NEB NEB SCH ×4 (01:07→19:44)
[2018-07-31] MEDS: ALBUTEROL HALF STRENGTH 1.25 MG/3 ML VIAL.NEB NEB SCH ×4 (01:07→19:44)
[2018-07-31] MEDS: PROPOFOL 100 ML IV PRN ×4 (01:12→18:18)
[2018-07-31] MEDS: IV D5/ 0.9% NACL 1,000 ML IV PRN ×3 (01:17→12:14)
[2018-07-31 03:23] LABS: BASOPHILS % (AUTO) 1.1 % (0.0-2.0); EOSINOPHILS % (AUTO) 0.1 % (0.0-6.0); HEMATOCRIT 35 % (39-51); HEMOGLOBIN 11.2 g/dL (13.5-17.5); LYMPHOCYTES % (AUTO) 24.6 % (20.0-44.0); MEAN CORPUSCULAR HGB CONC 32 g/dl (31.0-36.0); MEAN CORPUSCULAR VOLUME 104 fL (80-96); MONOCYTES # (AUTO) 0.6 /CMM (0.1-1.30); NEUTROPHILS # (AUTO) 2.6 /CMM (1.8-8.9); NEUTROPHILS % (AUTO) 60.2 % (43.0-81.0); PLATELET COUNT (AUTO) 223 /CMM (150-450); RDW COEFFICIENT OF VARIATION 14.6 (11.5-15.0); RED BLOOD CELL COUNT(AUTO) 3.33 MIL/uL (4.5-6.0); WHITE BLOOD COUNT (AUTO) 4.2 K/uL (4.3-11.0)
[2018-07-31 03:35] LABS: CALCIUM, SERUM 8.2 mg/dL (8.5-10.1); CARBON DIOXIDE 29 mmol/L (21-32); CHLORIDE 101 mmol/L (98-107); GLUCOSE 190 mg/dL (74-106); MAGNESIUM 1.9 mg/dL (1.8-2.4); PHOSPHORUS 2.3 mg/dL (2.5-4.9); SODIUM SERUM 138 mmol/L (136-145); UREA NITROGEN, BLOOD 17 mg/dL (7-18)
[2018-07-31 03:54] LABS: POTASSIUM 2.6 mmol/L (3.5-5.1)
[2018-07-31] MEDS: VANCOMYCIN 0.75 GM in IV NS 0.9% 250 ML IV SCH (04:00)
[2018-07-31] MEDS: POTASSIUM CL. PREMIX PERIPHER. 50 ML IV SCH ×4 (04:37→07:19)
[2018-07-31] MEDS: PIPERACILLIN /TAZOBACTAM 3.375 G in IV D5W 50 ML IV SCH ×3 (05:13→18:11)
--- NOTE | 2018-07-31 06:30 | NUR ---
RN NOTES WITH CRITICAL VALUE OF POTASSIUM 2.[address] DYE WITH NEW ORDER TO GIVE POTASSIUM CHLORIDE IV 80 MEQ BOLUS. STILL ONGOING AT THIS TIME WILL ENDORSED CONTINUITY OF CARE TO AM NURSE. REMAINED SR WITH BBB AND PVC'S. CONTINUE WITH IV DIPRIVAN AND PROPOFOL AND NS AT JW PICC LINE TITRATED NEEDED AND TOLERATED WELL.
--- NOTE | 2018-07-31 07:47 | NUR ---
INITIAL APPRENTICE INSTRUMENT TECHNICIAN NOTE RCVD PT SEDATED, INTUBATED ETT 7.5 21 AT UPPER GUMLINE, ST ON MONITOR WITH OCCASIONAL PVC's. TOLERATING ORDERED VENT SETTINGS WELL. VERDUZCO TO GRAVITY DRAINING CLEARM YELLOW URINE. IV SITES C/D/I/PATENT. NO S/O INFILTRATION/PHLEBITIS OBSERVED UPON FLUSHING. IVF, LEVO AND DIPRIVAN INFUSING ORDERED. NG-TUBE PLACEMENT VERIFIED BY AUSCULTATION/ASPIRATION. CLEAR GASTRIC CONTENT OBTAINED. WILL CONTINUE TO MONITOR PT FOR SAFETY AND COMFORT. CALL LIGHT WITHIN REACH. BED IN LOW AND LOCKED POSITION.
[2018-07-31] MEDS: PANTOPRAZOLE 40 MG VIAL IV SCH (07:59)
[2018-07-31] MEDS: HYDROCORTISONE SOD SUCCINATE 100 MG/2 ML VIAL IV SCH ×3 (08:00→16:25)
[2018-07-31] MEDS: ASPIRIN 81 MG TAB.CHEW NG SCH (08:00)
[2018-07-31] MEDS: ACIDOPHILUS/BULGARICUS 1 EACH TAB.CHEW NG SCH ×2 (08:00→16:25)
[2018-07-31] MEDS: POTASSIUM CHLORIDE 20 MEQ POWDER PACKET NG SCH ×5 (08:27→12:42)
[2018-07-31] MEDS: DAKINS QUARTER STRENGTH (0.125%) 480 ML BOTTLE TOP SCH (08:27)
--- NOTE | 2018-07-31 09:21 | NUR ---
hhn deferred zero distress noted
[2018-07-31] MEDS: VANCOMYCIN 500 MG in IV D5W 100 ML IV SCH ×2 (12:13→22:30)
[2018-07-31] MEDS: NOREPINEPHRINE 16 MG in IV D5W 500 ML IV PRN (12:17)
[2018-07-31] MEDS: LORAZEPAM INJ 2 MG/ML VIAL IV PRN (13:38)
--- NOTE | 2018-07-31 13:47 | NUR ---
CUTTER WET MACHINE NOTE SEDATION VACATION DONE. PT PLACED BACK ON SEDATION DUE TO BECOMING TACHYPNEIC AND TACHYCARDIC. PT ABLE TO NOD WHEN ASKED WHETHER HE HEARD OR SEE RN BUT UNABLE TO FOLLOW SIMPLE COMMANDS SUCH SQUEEZING FINGERS WITH EITHER HAND.
[2018-07-31 14:20] LABS: *SPE A/G RATIO 0.5 (0.7-1.7); *SPE ALBUMIN 2.6 g/dL (2.9-4.4); *SPE ALPHA-1-GLOBULIN 0.3 g/dL (0.0-0.4); *SPE ALPHA-2-GLOBULIN 0.9 g/dL (0.4-1.0); *SPE BETA GLOBULIN 2.9 g/dL (0.7-1.3); *SPE GLOBULIN, TOTAL 5.5 g/dL (2.2-3.9); *SPEGAMMA GLOBULIN 1.3 g/dL (0.4-1.8)
[2018-07-31] MEDS ORDERED: NEUTRA PHOS 1 POWD.PACKET GT ONE (15:30)
[2018-07-31] MEDS ORDERED: JEVITY 1.2 CAL 1,000 ML BOTTLE GT PRN (17:00)
--- NOTE | 2018-07-31 18:53 | NUR ---
TELEVISION NEWS REPORTER NOTE PT REMAINS SEDATED, INTUBATED WITH BILATERAL WRIST RESTRAINTS IN PLACE. CIRCULATION CHECKS DONE, PT REMAINS TACHYCARDIC, NG-TUBE PLACEMENT VERIFIED BY AUSCULTATION/ASPIRATION. VERDUZCO TO GRAVITY DRAINING IV SITES REMAIN THE SAME. WELL. PT'S CARE WILL BE ENDORSED TO GROUP MARKETING VP RN FOR CONTINUITY OF CARE. BED IN LOW AND LOCKED POSITION. PT'S , TIFFANI CAME TO VISIT THIS AFTERNOON. SHE WAS UPDATED REGARDING PT'S CONDITION AND VACATION SEDATION OUTCOME.
[2018-07-31] MEDS: JEVITY 1.2 CAL 1,000 ML BOTTLE GT PRN (19:17)
--- NOTE | 2018-07-31 19:20 | NUR ---
RN NOTES PT SEDATED WITH DIPRIVAN. WITH ETT 7.5, 21 CM AT LIP CONNECTED TO VENT SATURATION 100%. TELE MONITOR REVEALS ST WITH BBB AND OCCASIONAL PVC'S. WITH RIGHT NGTF JEVITY 1.2 @ 20 ML/HR PATENCY CHECKED. AND AUSCULTATE. IV SITE ON JW PICC LINE WITH DIPRIVAN @ 40 LEVO AT 18 MCG/MIN AND RFA G 18 INTACT AND PATENT. BILATERAL SOFT WRIST RESTRAINT KEPT IN PLACED. KEPT PT CLEAN AND DRY. REPOSITIONED FOR SKIN MANAGEMENT. KEPT CLEAN AND DRY. BED LOCKED AND IN LOWEST POSITION. F/C DRAINED WITH YELLOW COLOR URINE. WILL CLOSELY MONITOR.
--- NOTE | 2018-07-31 19:45 | NUR ---
PT RECEIVED INTUBATED ON VENT. TOLERATING SETTINGS. SX'D FOR MOD AMT OF THICK STUART SECRETIONS. VENT ALARMS SET AND AUDIBLE. AMBU BAG AT BEDSIDE. VENT PLUGGED INTO RED OUTLET. WILL CONTINUE TO MONITOR. Addendum: 07/31/18 at 1945 by LEO BUSH RT Amended: Links added.
[2018-08-01] VITALS (110 sets, daily range): BP systolic 53–116; BP diastolic 41–81
[2018-08-01] MEDS: PIPERACILLIN /TAZOBACTAM 3.375 G in IV D5W 50 ML IV SCH ×4 (00:18→17:27)
[2018-08-01] MEDS: PROPOFOL 100 ML IV PRN ×5 (00:54→23:05)
[2018-08-01] MEDS: IV D5/ 0.9% NACL 1,000 ML IV PRN ×2 (01:27→11:30)
[2018-08-01] MEDS: IPRATROPIUM NEB FS 0.5 MG/2.5 ML AMPUL.NEB NEB SCH ×4 (01:36→19:50)
[2018-08-01] MEDS: ALBUTEROL HALF STRENGTH 1.25 MG/3 ML VIAL.NEB NEB SCH ×3 (01:36→12:53)
[2018-08-01] MEDS: NOREPINEPHRINE 16 MG in IV D5W 500 ML IV PRN ×2 (01:38→17:27)
[2018-08-01 04:36] LABS: BASOPHILS % (AUTO) 0.3 % (0.0-2.0); HEMATOCRIT 31 % (39-51); LYMPHOCYTES # (AUTO) 1.1 /CMM (0.8-4.8); LYMPHOCYTES % (AUTO) 18.9 % (20.0-44.0); MEAN CORPUSCULAR HGB CONC 32 g/dl (31.0-36.0); MEAN CORPUSCULAR VOLUME 105 fL (80-96); MONOCYTES # (AUTO) 0.8 /CMM (0.1-1.30); MONOCYTES % (AUTO) 14.1 % (2.0-12.0); NEUTROPHILS # (AUTO) 3.7 /CMM (1.8-8.9); NEUTROPHILS % (AUTO) 66.7 % (43.0-81.0); PLATELET COUNT (AUTO) 197 /CMM (150-450); RDW COEFFICIENT OF VARIATION 14.4 (11.5-15.0); RED BLOOD CELL COUNT(AUTO) 2.96 MIL/uL (4.5-6.0); WHITE BLOOD COUNT (AUTO) 5.6 K/uL (4.3-11.0)
[2018-08-01 05:18] LABS: CALCIUM, SERUM 8.1 mg/dL (8.5-10.1); CARBON DIOXIDE 23 mmol/L (21-32); CHLORIDE 106 mmol/L (98-107); CREATININE 1.1 mg/dL (0.6-1.3); GLUCOSE 193 mg/dL (74-106); MAGNESIUM 1.9 mg/dL (1.8-2.4); PHOSPHORUS 3.3 mg/dL (2.5-4.9); POTASSIUM 4.7 mmol/L (3.5-5.1); SODIUM SERUM 137 mmol/L (136-145)
[2018-08-01 05:27] LABS: UREA NITROGEN, BLOOD 23 mg/dL (7-18)
--- NOTE | 2018-08-01 07:00 | NUR ---
RN NOTES PATIENT IN THE SAME CONDITION WITH ETT AND VENT, SETTING TOLERATED WELL SATURATION >92%, TMAX 99.6, ST WITH BBB AND PVC'S. ALL DUE MEDICINE TOLERATED WELL. NGTF JEVITY 1.2 TOLERATED AT 40 ML/HR WITH 15 CC RESIDUAL. HOB KEPT ELEVATED. REPOSITIONED Q2H, BEDBATH DONE WOUND CARE PROVIDED. PT IS CLEAN AND DRY. ENDORSED TO AM SHIFTY FO CONTINUITY OF CARE
--- NOTE | 2018-08-01 07:53 | NUR ---
INITIAL SPIKE MAKER NOTE RCVD PT SEDATED, INTUBATED ETT 7.5 19 AT UPPER GUM LINE. PER CX RADIOLOGIST RECOMMENDS ETT TO BE ADVANCED 5-[address] RHODES CONTACTED WHO AGREED WITH RECOMMENDATION. RT CALLED. PT TOLERATING VENT SETTINGS WELL AT THIS TIME. ST ON MONITOR. NG-TUBE PLACEMENT VERIFIED BY AUSCULTATION/ASPIRATION. NO TUBE FEEDING RESIDUAL OBTAINED. VERDUZCO TO GRAVITY DRAINING CLEAR, YELLOW URINE. JW PICC C/D/I/PATENT. RIGHT FA LEAKING WILL DISCONTINUE. WILL CONTINUE TO MONITOR PT FOR SAFETY AND COMFORT. BED IN LOW AND LOCKED POSITION.
[2018-08-01] MEDS: ACIDOPHILUS/BULGARICUS 1 EACH TAB.CHEW NG SCH ×2 (08:34→17:26)
[2018-08-01] MEDS: ASPIRIN 81 MG TAB.CHEW NG SCH (08:34)
[2018-08-01] MEDS: PANTOPRAZOLE 40 MG VIAL IV SCH (08:34)
[2018-08-01] MEDS: HYDROCORTISONE SOD SUCCINATE 100 MG/2 ML VIAL IV SCH ×3 (08:34→17:26)
[2018-08-01] MEDS: DAKINS QUARTER STRENGTH (0.125%) 480 ML BOTTLE TOP SCH (08:35)
[2018-08-01] MEDS: Z GUARD REMEDY 2 OZ OINT TP PRN (08:35)
--- NOTE | 2018-08-01 08:44 | NUR ---
AUTO TRANSMISSION MECHANIC NOTE RT BRUCE ADVANCE ETT PER RADIOLOGIST'S RECOMMENDATION. PER DR. LOBO BARRIOS TO ORDER CHEST X-RAY TO VERIFY PLACEMENT. ORDER PLACE, RADIOLOGY CALLED. WILL F/U.
[2018-08-01] MEDS: ACETAMINOPHEN 650 MG/20.3 ML UDC NG PRN (09:51)
[2018-08-01] MEDS: MORPHINE SULFATE INJ 4 MG/ML DISP.SYRIN IV PRN ×2 (09:52→17:29)
--- NOTE | 2018-08-01 10:08 | NUR ---
SEDATION VACATION NOTE UNABLE TO START SEDATION VACATION DUE TO CONSISTENT TACHYCARDIA 120'S, PAIN MEASURES TAKEN, REPOSITIONING DONE, WILL CONTINUE TO ASSESS.
[2018-08-01] MEDS: VANCOMYCIN 500 MG in IV D5W 100 ML IV SCH ×2 (11:26→22:59)
[2018-08-01] MEDS: LORAZEPAM INJ 2 MG/ML VIAL IV PRN (12:05)
--- NOTE | 2018-08-01 15:39 | NUR ---
PHARMACY BUYER NOTE WHILE OUT ON BREAK, PT'S EXPERIENCED 19 BEATS OF V-TACH. DR. RAMIREZ INFORMED. HE ACKNOWLEDGE AND GAVE NO NEW ORDERS. WILL CONTINUE TO MONITOR PT.
[2018-08-01] MEDS: LamoTRIgine 100 MG TABLET PO SCH (17:26)
[2018-08-01] MEDS: TIMOLOL 0.5% SOLN OPHTH 5 ML BOTTLE EACHEYE SCH (17:27)
[2018-08-01] MEDS: JEVITY 1.2 CAL 1,000 ML BOTTLE GT PRN (17:31)
[2018-08-01] MEDS: prednisoLONE ACET 1% OPHT DROP 5 ML BOTTLE EACHEYE SCH ×2 (18:28→21:48)
--- NOTE | 2018-08-01 18:28 | NUR ---
RT NOTE PT REMAINS IN STABLE CONDITION. PT MECHANICALLY VENTILATED VIA 7.5 ETT 26CM AT LIP. ETT SECURE. CUFF INFLATED VIA ADVANCED MANAGER. SETTINGS PRESCRIBED. ALARMS SET PER PROTOCOL AND AUDIBLE. AMBU BAG AT BED SIDE. NO DISTRESS NOTED. Addendum: 08/01/18 at 1829 by BRUCE FERMIN RT Amended: Links added.
--- NOTE | 2018-08-01 18:43 | NUR ---
DEVELOPMENT CHEMIST NOTE ATTEMPTED TO PERFORM SEDATION VACATION IN THE AFTERNOON, PT BECAME TACHYCARDIC, RESTLESS, REMAINED DROWSY DURING THIS TIME, ABLE TO FROWN TO PAINFUL STIMULI AND PULL FROM PAINFUL STIMULI. DR. DIAMOND AWARE. PT REMAINS SEDATED, INTUBATED ETT 7.5 24 AT LIP TOLERATING VENT SETTINGS WELL. SR ON MONITOR. NG-TUBE PLACEMENT VERIFIED BY AUSCULTATION/ASPIRATION. NO RESIDUAL DURING SHIFT. TOLERATING TUBE FEEDING RATE. VERDUZCO TO GRAVITY DRAINING CLEAR, YELLOW URINE. BILATERAL SOFT RESTRAINS IN PLACE. CIRCULATION CHECKS DONE. JW PICC C/D/I/PATENT. NO S/O INFILTRATION/ASPIRATION OBSERVED. LEVO, DIPRIVAN INFUSING ORDERED. PT'S CARE WILL BE ENDORSED TO CNC MILL PROGRAMMER RN FOR CONTINUITY OF CARE. BED IN LOW AND LOCKED POSITION.
--- NOTE | 2018-08-01 19:15 | NUR ---
ICU/RN RECEIVED PT ON VENT VIA ORAL ETT W/ FIO2 AT 40%,SATURATION OF 100%.SUCTIONED FOR SCANT AMT.THIN SECRETIONS,PALE YELLOW.ON LEVOPHED DRIP AT 10 MCG/MINUTE,INCREASED TO 12MCG FOR [id number] AT 1999.
--- NOTE | 2018-08-01 19:54 | NUR ---
PT RECEIVED ON VENT. TOLERATING SETTINGS. SX'D FOR MOD AMT OF THICK STUART SECRETIONS. VENT ALARMS SET AND AUDIBLE. AMBU BAG AT BEDSIDE. VENT PLUGGED INTO RED OUTLET. WILL CONTINUE TO MONITOR. Addendum: 08/01/18 at 1954 by LEO BUSH RT Amended: Links added.
--- NOTE | 2018-08-01 20:30 | NUR ---
ICU/RN ZXN=483/74,LEVOPHED AT 12MCG/MIN.MONITOR SHOWS SR W/RARE TO OCCASIONAL PVC'S.REPOSITIONED.
[2018-08-01] MEDS: NORTRIPTYLINE HCL 10 MG CAPSULE PO SCH (22:00)
[2018-08-01] MEDS: ATORVASTATIN 10 MG TABLET GT SCH (22:02)
[2018-08-01] MEDS: OLANZAPINE 5 MG TABLET PO SCH (22:03)
[2018-08-01] MEDS: MIRTAZAPINE 15 MG TABLET PO SCH ×3 (22:04→22:16)
[2018-08-02] VITALS (97 sets, daily range): BP systolic 81–117; BP diastolic 38–78
[2018-08-02] MEDS: PIPERACILLIN /TAZOBACTAM 3.375 G in IV D5W 50 ML IV SCH ×4 (00:06→17:55)
[2018-08-02] MEDS: IPRATROPIUM NEB FS 0.5 MG/2.5 ML AMPUL.NEB NEB SCH ×4 (01:33→19:31)
--- NOTE | 2018-08-02 04:00 | NUR ---
ICU.RN. TOLERATING TUBE FEEDING W/OUT RESIDUAL. 0430 SBP=69/53LEVOPHED INCREASED TO 16MCG/MIN.
[2018-08-02 05:07] LABS: CALCIUM, SERUM 8.4 mg/dL (8.5-10.1); CARBON DIOXIDE 23 mmol/L (21-32); CHLORIDE 110 mmol/L (98-107); GLUCOSE 146 mg/dL (74-106); PHOSPHORUS 3.2 mg/dL (2.5-4.9); POTASSIUM 3.6 mmol/L (3.5-5.1); SODIUM SERUM 143 mmol/L (136-145); UREA NITROGEN, BLOOD 26 mg/dL (7-18)
[2018-08-02 05:26] LABS: HEMATOCRIT 33 % (39-51); HEMOGLOBIN 10.6 g/dL (13.5-17.5); LYMPHOCYTES # (AUTO) 1.1 /CMM (0.8-4.8); MEAN CORPUSCULAR HGB CONC 33 g/dl (31.0-36.0); MEAN CORPUSCULAR VOLUME 110 fL (80-96); MONOCYTES # (AUTO) 1.2 /CMM (0.1-1.30); NEUTROPHILS # (AUTO) 2.9 /CMM (1.8-8.9); PLATELET COUNT (AUTO) 170 /CMM (150-450); RDW COEFFICIENT OF VARIATION 15.3 (11.5-15.0); RED BLOOD CELL COUNT(AUTO) 2.96 MIL/uL (4.5-6.0); WHITE BLOOD COUNT (AUTO) 5.2 K/uL (4.3-11.0)
--- NOTE | 2018-08-02 06:00 | NUR ---
ICU/RN REMAINS ON DIPRIVAN DRIP,INCREASED TO 45MCG.KG/WI.LEVOPHED REINS AT 16MCG/MIN.MONITOR SHOWS STACH W/ RARE-OCC PVC'S.T-MAX 100.2 NOW AT 99.2DEGREES.
[2018-08-02 06:11] LABS: LYMPHOCYTES % (MANUAL) 27 % (16-48); MONOCYTES % (MANUAL) 21 % (0-11.0); NEUTROPHILS % (MANUAL) 52 (42-76)
[2018-08-02] MEDS: PROPOFOL 100 ML IV PRN (06:47)
--- NOTE | 2018-08-02 07:54 | NUR ---
INITIAL BAKER DOUGHNUT NOTE RCVD PT SEDATED ON DIPRIVAN, WITHDRAWS FROM PAINFUL STIMULI, BILATERAL SOFT WRIST RESTRAINTS IN PLACE, INTUBATED ETT 7.5 24 AT LIP. TOLERATING ORDERED VENT SETTINGS WELL. SR ON MONITOR WITH OCCASIONAL PVCs. NG-TUBE PLACEMENT VERIFIED BY CX THIS AM. NO RESIDUAL UPON AUSCULTATION OBTAINED. VERDUZCO TO GRAVITY DRAINING CLEAR, YELLOW URINE. WOUND DRESSINGS C/D/I/. WJ PICC C/D/I/PATENT. NO S/O INFILTRATION/PHLEBITIS OBSERVED LEVO AND DIPRIVAN INFUSING ORDERED. WILL CONTINUE TO MONITOR PT FOR SAFETY AND COMFORT. BED IN LOW AND LOCKED POSITION.
--- NOTE | 2018-08-02 08:10 | NUR ---
RT PATIENT REC'D ORALLY INTUBATED ON [facility] VENT WITH ORDERED SETTINGS CHANDAN WELL. VENT ALARMS CHECKED + AUDIBLE. CUFF CHECKED BROOM STITCHER. B/S DIM. PATIENT AIRWAY SUCTIONED WITH SMALL/MOD AMT OF PALE STUART SEMITHICK SECRETIONS. PATIENT NON VERBAL, NO DISTRESS NOTED AT THIS TIME. AMBU BAG AT [facility]. Addendum: 08/02/18 at 1755 by ROSE REINA RT Amended: Links added.
[2018-08-02] MEDS: PANTOPRAZOLE 40 MG VIAL IV SCH (08:28)
[2018-08-02] MEDS: ASPIRIN 81 MG TAB.CHEW NG SCH (08:29)
[2018-08-02] MEDS: LamoTRIgine 100 MG TABLET PO SCH ×2 (08:29→16:07)
[2018-08-02] MEDS: TAMSULOSIN 0.4 MG CAP.SR.24H PO SCH (08:29)
[2018-08-02] MEDS: ACIDOPHILUS/BULGARICUS 1 EACH TAB.CHEW NG SCH ×2 (08:29→16:07)
[2018-08-02] MEDS: LEVOTHYROXINE SODIUM 50 MCG TABLET PO SCH (08:29)
[2018-08-02] MEDS: DULOXETINE HCL 30 MG CAPSULE.DR GT SCH (08:29)
[2018-08-02] MEDS: HYDROCORTISONE SOD SUCCINATE 100 MG/2 ML VIAL IV SCH ×3 (08:29→16:07)
[2018-08-02] MEDS: prednisoLONE ACET 1% OPHT DROP 5 ML BOTTLE EACHEYE SCH ×4 (08:30→22:18)
[2018-08-02] MEDS: DAKINS QUARTER STRENGTH (0.125%) 480 ML BOTTLE TOP SCH (08:30)
[2018-08-02] MEDS: TIMOLOL 0.5% SOLN OPHTH 5 ML BOTTLE EACHEYE SCH ×2 (08:30→16:08)
[2018-08-02] MEDS ORDERED: ASPIRIN 81 MG TAB.CHEW PO SCH (09:00)
[2018-08-02] MEDS: NOREPINEPHRINE 16 MG in IV D5W 500 ML IV PRN (10:05)
[2018-08-02] MEDS: VANCOMYCIN 500 MG in IV D5W 100 ML IV SCH ×2 (10:07→22:59)
--- NOTE | 2018-08-02 11:57 | NUR ---
SEDATION VACATION NOTE PT OFF SEDATION SINCE 1000, ABLE TO FOLLOW SIMPLE COMMANDS SUCH OPEN EYES, RAISING EYEBROWS, MOVING TONGUE AND MAKING A FIST WITH HAND. PT APPEARS TO ACKNOWLEDGE INFORMATION VERBALIZED TO HIM BY NODDING. VITAL SIGNS REMAIN STABLE. PER DR. DIAMOND WILL KEEP PT OFF SEDATION LONG HIS VITAL SIGNS TOLERATE IT AND GIVE ATIVAN NEEDED. WILL CONTINUE TO MONITOR PT FOR SAFETY AND COMFORT.
[2018-08-02] MEDS: BISACODYL SUPP (10 MG) 10 MG/SUPP.RECT SUPP.RECT RC PRN (12:47)
[2018-08-02] MEDS: ACETAMINOPHEN 650 MG/20.3 ML UDC NG PRN (13:54)
[2018-08-02] MEDS: LORAZEPAM INJ 2 MG/ML VIAL IV PRN ×2 (16:08→22:04)
[2018-08-02] MEDS: JEVITY 1.2 CAL 1,000 ML BOTTLE GT PRN (18:01)
[2018-08-02] MEDS: Z GUARD REMEDY 2 OZ OINT TP PRN (18:02)
--- NOTE | 2018-08-02 18:55 | NUR ---
RUBBER CUTTING MACHINE TENDER NOTE PT REMAINS OFF SEDATION, VITAL SIGNS STABLE, SR ON MONITOR. TOLERATING ORDERED VENT SETTINGS. OFF RESTRAINTS AT THIS TIME. PT OPENS EYES TO NAME, CONTINUES TO ACKNOWLEDGE INSTRUCTIONS WHEN SPOKE TO. VERDUZCO TO GRAVITY DRAINING CLEAR, YELLOW URINE. NG-TUBE PLACEMENT VERIFIED BY AUSCULTATION/ASPIRATION. TOLERATING ORDERED TUBE FEEDING RATE. NO RESIDUAL OBTAINED. JW PICC C/D/I/PATENT. NO S/O INFILTRATION/PHLEBITIS OBSERVED. LEVO TITRATED ORDERED. PT'S CARE WILL BE ENDORSED TO TELEGRAPH EQUIPMENT MAINTAINER RN FOR CONTINUITY OF CARE. BED IN LOW AND LOCKED POSITION. PT'S VISITED EARLIER IN THE DAY AND WAS UPDATED REGARDING PLAN OF CARE BY DR. DIAMOND AND RN. QUESTIONS ENCOURAGED AND ANSWERED TO HER SATISFACTION.
--- NOTE | 2018-08-02 19:33 | NUR ---
PT RECEIVED ON VENT. TOLERATING SETTINGS. SX'D FOR MOD AMT OF THICK STUART SECRETIONS. VENT ALARMS SET AND AUDIBLE. AMBU BAG AT BEDSIDE. VENT PLUGGED INTO RED OUTLET. WILL CONTINUE TO MONITOR. Addendum: 08/02/18 at 1933 by LEO BUSH RT Amended: Links added.
--- NOTE | 2018-08-02 20:00 | NUR ---
SYSTEM ADMINISTRATION MANAGER RCD PT W/DX PNA; PT IS OBTUNDED; RESTRAINTS ARE OFF. NSR ON MONITOR. LEVOPHED AT 10 MCG/MIN. INTUBATED 7.5 @ 24 W/VENT SETTINGS AC 20 450 40%. PT HAS THICK WHITE SECRETIONS; PROVIDED ORAL CARE. RIGHT NARE NG TUBE W/JEVITY 1.2 @ 55 ML/HR; NO RESIDUAL AT THIS TIME. VERDUZCO CATHETER DRAINING ADEQUATE AMOUNT OF YELLOW CLOUDY URINE.
[2018-08-02] MEDS: ATORVASTATIN 10 MG TABLET GT SCH (21:45)
[2018-08-02] MEDS: MIRTAZAPINE 15 MG TABLET PO SCH (21:45)
[2018-08-02] MEDS: OLANZAPINE 5 MG TABLET PO SCH (21:45)
--- NOTE | 2018-08-02 22:04 | NUR ---
ASSISTANT PARALEGAL PT NOTED TO BE WAKING UP DURING SUCTIONING; ATIVAN 0.5 MG IVP GIVEN. CONTINUE TO MONITOR.
[2018-08-02] MEDS: NORTRIPTYLINE HCL 10 MG CAPSULE PO SCH (22:15)
[2018-08-02] MEDS: IV NS 0.9% 250 ML IV PRN (22:59)
[2018-08-03] VITALS (106 sets, daily range): BP systolic 64–138; BP diastolic 33–89
[2018-08-03] MEDS: LORAZEPAM INJ 2 MG/ML VIAL IV PRN ×2 (01:35→17:38)
--- NOTE | 2018-08-03 01:35 | NUR ---
NURSE ASSESSOR PT NOTED TO BE RESTLESS; ATIVAN 0.5 MG IVP GIVEN. CONTINUE TO MONITOR.
[2018-08-03] MEDS: IPRATROPIUM NEB FS 0.5 MG/2.5 ML AMPUL.NEB NEB SCH ×4 (01:36→19:25)
[2018-08-03 04:53] LABS: CALCIUM, SERUM 7.9 mg/dL (8.5-10.1); CARBON DIOXIDE 27 mmol/L (21-32); CHLORIDE 110 mmol/L (98-107); CREATININE 0.9 mg/dL (0.6-1.3); GLUCOSE 175 mg/dL (74-106); SODIUM SERUM 145 mmol/L (136-145); UREA NITROGEN, BLOOD 32 mg/dL (7-18)
[2018-08-03 04:56] LABS: POTASSIUM 2.6 mmol/L (3.5-5.1)
--- NOTE | 2018-08-03 06:00 | NUR ---
FLOOR COVERINGS SALESPERSON PROVIDED ORAL CARE; COMPLETE BED BATH GIVEN. PT TOLERATED WELL.
[2018-08-03] MEDS: PIPERACILLIN /TAZOBACTAM 3.375 G in IV D5W 50 ML IV SCH ×6 (06:15→23:47)
[2018-08-03] MEDS: NOREPINEPHRINE 16 MG in IV D5W 500 ML IV PRN ×2 (06:15→17:07)
--- NOTE | 2018-08-03 06:16 | NUR ---
RELOCATION COMMISSIONER NOTE RELAYED CRITICAL POTASSIUM LEVEL 2.[address] DYE WITH NEW ORDERS RECEIVED potassium 60 mEq IV. NOTIFIED PRIMARY NURSE.
[2018-08-03] MEDS: POTASSIUM CL. PREMIX PERIPHER. 50 ML IV SCH ×2 (06:45→07:53)
[2018-08-03] MEDS: IV NS 0.9% 250 ML IV PRN (06:51)
--- NOTE | 2018-08-03 07:14 | NUR ---
MANAGER REAL ESTATE PT REMAINED ON LEVOPHED AT 10 MCG/MIN ALL THROUGHOUT SHIFT. STARTED POTASSIUM REPLACEMENT.
--- NOTE | 2018-08-03 07:15 | NUR ---
RECEIVED REPORT FROM DANIELLE COLLAZO. PATIENT ETT 7.5 24 LIP WITH VENT SETTINGS PER ORDER. NO SEDATION MEDICATION RUNNING AND PATIENT CONTINUES TO BE LETHARGIC HOWEVER IS FOLLOWING COMMANDS. OPENING EYES, NODDING YES AND NO AND MOVING EXTREMITIES WHEN ASKED. PATIENT NODS NO TO PAIN AND APPEARS CALM AND COOPERATIVE. LEVOPHED RUNNING PER SPREADSHEET AND CONTINUING TO TITRATE PER PROTOCOL. PATIENT NSR AT THIS TIME. RNARE FEEDING TUBE IN PLACE AND RUNNING JEVITY 1.2 AT 55 WITH MINIMAL RESIDUAL NOTED. VERDUZCO CATH IN PLACE C/D/I/P. JW PICC C/D/I/P WITH BLOOD RETURN. CURRENTLY REPLACING POTASSIUM PER ORDER.SAFETY, SKIN, AND ASPIRATION PRECAUTIONS IN PLACE. WILL MONITOR
--- NOTE | 2018-08-03 07:33 | NUR ---
RT NOTE RECEIVED PT MECHANICALLY VENTILATED VIA 7.5 ETT 26 CM AT LIP. CUFF INFLATED. ETT SECURE. SETTINGS PRESCRIBED. ALARMS SET PER PROTOCOL AND AUDIBLE. VENT PLUGGED IN TO RED OUTLET. AMBU BAG AT BED SIDE. NO DISTRESS NOTED AT MOMENT. Addendum: 08/03/18 at 0735 by BRUCE FERIMN RT Amended: Links added.
[2018-08-03] MEDS: PANTOPRAZOLE 40 MG VIAL IV SCH (07:53)
[2018-08-03] MEDS: LEVOTHYROXINE SODIUM 50 MCG TABLET PO SCH (07:53)
[2018-08-03] MEDS: ASPIRIN 81 MG TAB.CHEW NG SCH (08:20)
[2018-08-03] MEDS: HYDROCORTISONE SOD SUCCINATE 100 MG/2 ML VIAL IV SCH ×3 (08:20→16:11)
[2018-08-03] MEDS: TAMSULOSIN 0.4 MG CAP.SR.24H PO SCH (08:20)
[2018-08-03] MEDS: DULOXETINE HCL 30 MG CAPSULE.DR GT SCH (08:20)
[2018-08-03] MEDS: LamoTRIgine 100 MG TABLET PO SCH ×2 (08:20→16:11)
[2018-08-03] MEDS: ACIDOPHILUS/BULGARICUS 1 EACH TAB.CHEW NG SCH ×2 (08:20→16:11)
[2018-08-03] MEDS: prednisoLONE ACET 1% OPHT DROP 5 ML BOTTLE EACHEYE SCH ×4 (08:22→21:03)
[2018-08-03] MEDS: DAKINS QUARTER STRENGTH (0.125%) 480 ML BOTTLE TOP SCH (08:22)
[2018-08-03] MEDS: TIMOLOL 0.5% SOLN OPHTH 5 ML BOTTLE EACHEYE SCH ×2 (08:22→16:15)
--- NOTE | 2018-08-03 08:53 | NUR ---
dr ford at bedside. per md discontinue ivpb 60meq potassium and continue with his order of 120meq ngtube. md aware 20meq given already.
[2018-08-03] MEDS: POTASSIUM CHLORIDE 20 MEQ POWDER PACKET NG SCH ×6 (09:34→14:00)
[2018-08-03] MEDS: VANCOMYCIN 500 MG in IV D5W 100 ML IV SCH (10:34)
[2018-08-03] MEDS ORDERED: POTASSIUM CHLORIDE 20 MEQ POWDER PACKET GT ONE (15:30)
[2018-08-03] MEDS: JEVITY 1.2 CAL 1,000 ML BOTTLE GT PRN (17:07)
[2018-08-03] MEDS: Z GUARD REMEDY 2 OZ OINT TP PRN (17:07)
--- NOTE | 2018-08-03 19:14 | NUR ---
ALL DUE MEDS GIVEN AND ALL NEEDS MET. PATIENT VENT SETTINGS PER ORDER AND TOLERATING WELL. LEVOPHED RUNNING PER ORDER. TUBE FEEDING PER ORDER NO RESIDUAL NOTED. SAFETY, SKIN, AND ASPIRATION PRECAUTIONS MONITORED THROUGHOUT DAY. CARE ENDORSED TO RN FOR AMPARO
--- NOTE | 2018-08-03 20:00 | NUR ---
ASSEMBLER GOLF WOOD HEAD - NOTES - RECEIVED PATIENT ETT 7.5 24 LIP WITH VENT SETTINGS PER ORDER. NO SEDATION MEDICATION RUNNING AND PATIENT IS AWAKE AND FOLLOWING COMMANDS. OPENING EYES, NODDING YES AND NO AND MOVING EXTREMITIES WHEN ASKED. PATIENT NODS NO TO PAIN AND APPEARS CALM AND COOPERATIVE. LEVOPHED RUNNING PER SPREADSHEET AND CONTINUING TO TITRATE PER PROTOCOL. PATIENT NSR/ST AT THIS TIME. R NARE FEEDING TUBE IN PLACE AND RUNNING JEVITY 1.2 AT 55 WITH MINIMAL RESIDUAL NOTED. VERDUZCO CATH IN PLACE C/D/I/P. JW PICC C/D/I/P WITH BLOOD RETURN. CURRENTLY REPLACING POTASSIUM PER ORDER.SAFETY, SKIN, AND ASPIRATION PRECAUTIONS IN PLACE. WILL MONITOR
[2018-08-03] MEDS: MIRTAZAPINE 15 MG TABLET PO SCH (21:02)
[2018-08-03] MEDS: OLANZAPINE 5 MG TABLET PO SCH (21:02)
[2018-08-03] MEDS: NORTRIPTYLINE HCL 10 MG CAPSULE PO SCH (21:03)
[2018-08-03] MEDS: MORPHINE SULFATE INJ 4 MG/ML DISP.SYRIN IV PRN (23:47)
[2018-08-04] VITALS (105 sets, daily range): BP systolic 50–149; BP diastolic 20–111
[2018-08-04] MEDS: IPRATROPIUM NEB FS 0.5 MG/2.5 ML AMPUL.NEB NEB SCH ×4 (01:53→19:35)
[2018-08-04 04:57] LABS: CALCIUM, SERUM 8.4 mg/dL (8.5-10.1); CARBON DIOXIDE 29 mmol/L (21-32); CHLORIDE 111 mmol/L (98-107); GLUCOSE 114 mg/dL (74-106); SODIUM SERUM 145 mmol/L (136-145); UREA NITROGEN, BLOOD 37 mg/dL (7-18)
[2018-08-04] MEDS: PIPERACILLIN /TAZOBACTAM 3.375 G in IV D5W 50 ML IV SCH ×4 (05:51→23:30)
--- NOTE | 2018-08-04 06:46 | NUR ---
RT PT RECEIVED INTUBATED ON [facility] VENT WITH NOTED SETTING.ETT PATENT AND SECURE VIA ANCHOR FAST. PT TOLERATING SETTING WELL. NO SOB OR RESP DISTRESS NOTED ON SHIFT. VENT TO RED OUTLET. ALARM SET AND AUDIBLE. Addendum: 08/04/18 at 0647 by STARR KHAN RT Amended: Links added.
--- NOTE | 2018-08-04 07:00 | NUR ---
RECEIVED PATIENT INTUBATED 7.03/27 LIP LINE TOLERATING VENT SETTINGS. PATIENT IS MUCH MORE AWAKE TODAY. EYES OPENING SPONTANEOUSLY. FOLLOWING COMMANDS AND MOVING ALL EXTREMITIES. PATIENT NODS NO TO PAIN AND IS CALM AND COOPERATIVE AT THIS TIME. AT NIGHT PER RN PATIENT HAD PERIODS OF RESTLESSNESS. PATIENT RESTARTED ON LEVOPHED AND WILL TITRATE PER PROTOCOL. VERDUZCO CATH IN PLACE DRAINING TO GRAVITY. TUBE FEEDING PER ORDER AND TOLERATING WELL NO RESIDUAL NOTED. JW PICC LINE C/D/I/P AND GOOD BLOOD RETURN NOTED. SAFETY, SKIN, AND ASPIRATION PRECAUTIONS IN PLACE AND MONITORING.
[2018-08-04] MEDS: DULOXETINE HCL 30 MG CAPSULE.DR GT SCH (08:04)
[2018-08-04] MEDS: LEVOTHYROXINE SODIUM 50 MCG TABLET PO SCH (08:04)
[2018-08-04] MEDS: PANTOPRAZOLE 40 MG VIAL IV SCH (08:04)
[2018-08-04] MEDS: ACIDOPHILUS/BULGARICUS 1 EACH TAB.CHEW NG SCH ×2 (08:04→16:43)
[2018-08-04] MEDS: prednisoLONE ACET 1% OPHT DROP 5 ML BOTTLE EACHEYE SCH ×4 (08:04→20:41)
[2018-08-04] MEDS: ASPIRIN 81 MG TAB.CHEW NG SCH (08:04)
[2018-08-04] MEDS: HYDROCORTISONE SOD SUCCINATE 100 MG/2 ML VIAL IV SCH ×3 (08:04→16:43)
[2018-08-04] MEDS: LamoTRIgine 100 MG TABLET PO SCH ×2 (08:04→16:43)
[2018-08-04] MEDS: TAMSULOSIN 0.4 MG CAP.SR.24H PO SCH (08:04)
[2018-08-04] MEDS: TIMOLOL 0.5% SOLN OPHTH 5 ML BOTTLE EACHEYE SCH ×2 (08:05→16:41)
[2018-08-04] MEDS: DAKINS QUARTER STRENGTH (0.125%) 480 ML BOTTLE TOP SCH (08:05)
[2018-08-04] MEDS: Z GUARD REMEDY 2 OZ OINT TP PRN ×2 (08:05→16:49)
[2018-08-04] MEDS: IV NS 0.9% 250 ML IV PRN (08:07)
[2018-08-04 11:08] LABS: ABG BASE EXCESS 3.7 mmol/L; ABG OXYGEN SATURATION 95.7 % (92.0-98.5); ABG PCO2 37.2 mmHg (35.0-45.0); ABG PH 7.483 (7.350-7.450); ABG PO2 84.6 mmHg (75.0-100.0); AaDO2 157.8 mmHg; COHb 0.3 % (0.5-1.5); MetHb 0.4 % (0.0-1.5); PEEP,BG 5 cm H2O; SITE, ABG Right Radial; VENT MODE, BG SIMV PS15; VT, ABG 450 mL
--- NOTE | 2018-08-04 11:48 | NUR ---
PER DR DIAMOND SIT PATIENT UP. IF BLOOD PRESSURE STABLE ABOVE 90'S OK TO EXTUBATE. SAT PATIENT UP. VS CONTINUE TO BE STABLE. PATIENT ALERT AND AWAKE RT CHANCE AWARE OF EXTUBATION ORDERS.
--- NOTE | 2018-08-04 12:12 | NUR ---
PATIENT SUCCESSFULLY EXTUBATED NO COMPLICATIONS NOTED. PATIENT 98% ON NASAL CANNULA PATIENT GAG AND COUGH REFLEXES INTACT. NO DISTRESS NOTED. NO SOB. ABLE TO CLEAR OWN SECRETIONS AT THIS TIME. WILL CONTINUE TO MONITOR CLOSELY
[2018-08-04] MEDS: ACETAMINOPHEN 650 MG/20.3 ML UDC NG PRN (12:22)
--- NOTE | 2018-08-04 13:40 | NUR ---
S/P EXTUBATION ABG RELAYED TO DR DIAMOND. NO NEW ORDERS. KEEP PATIENT ON LOW FLOW OXYGEN. AIRWAY PATENT
[2018-08-04 13:55] LABS: ABG BASE EXCESS 2.4 mmol/L; ABG OXYGEN SATURATION 95.5 % (92.0-98.5); ABG PCO2 36.7 mmHg (35.0-45.0); ABG PH 7.469 (7.350-7.450); ABG PO2 83.9 mmHg (75.0-100.0); AaDO2 130.2 mmHg; COHb 0.3 % (0.5-1.5); MetHb 0.6 % (0.0-1.5); O2Hb 94.6 % (94.0-97.0); SITE, ABG Left Radial; VENT MODE, BG N/C
[2018-08-04] MEDS: JEVITY 1.2 CAL 1,000 ML BOTTLE GT PRN (16:43)
[2018-08-04] MEDS: NOREPINEPHRINE 16 MG in IV D5W 500 ML IV PRN (18:20)
--- NOTE | 2018-08-04 18:32 | NUR ---
PT. 78 Y OLD MALE AWAKE AND RESPONSIVE @0700 RECEIVED ON VENT. CHANDAN WITH NOTED SETTINGS. @0800 START WEANING ON SIMV MODE. PER DR. DIAMOND ORDER. SX'D FOR MOD AMT OF THICK STUART SECRETIONS. VENT ALARMS SET AND FUNCTIONAL. B/S FINE RALES/CLEAR ON BASES BILATERALLY, @1210 PT. EXTUBATED AND PLACED ON 4L/MIN O2 PER MD ORDER AND TITRATED DOWN TO 2 L/MIN T/O SHIFT. (NO MED GIVEN AT 1300 DUE TO SLEEPING AND REST PER PT. REQUEST) PT. REMAIN STABLE. AMBU BAG AND VENT STAND BY PER MD REQUEST. WILL CONTINUE TO MONITOR. REPORT WILL PASS TO PM SHIFT Addendum: 08/04/18 at 1836 by CHANCE CHATMAN RT Amended: Links added.
--- NOTE | 2018-08-04 19:18 | NUR ---
ALL DUE MEDS GIVEN AND ALL NEEDS MET. PATIENT STABLE ON LOW FLOW OXYGEN NO SOB, DIFFICULTY BREATHING OR PAIN. PATIENT AWAKE AND ALERT. ORIENTED TO SELF, PLACE. PATIENT CONTINUES ON LEVO 10MCG/MIN. WHEN OFF PATIENT HYPOTENSIVE IN 70'S. SAFETY, SKIN, AND ASPIRATION PRECAUTIONS MONITORED THROUGHOUT DAY. CARE ENDORSED TO RN FOR AMPARO
[2018-08-04] MEDS: MORPHINE SULFATE INJ 4 MG/ML DISP.SYRIN IV PRN (20:40)
--- NOTE | 2018-08-04 21:36 | NUR ---
RECEIVED PT ON 2L NC. PT IS AWAKE AND ALERT NO SOB. PT IS RECEIVING Q6 BREATHING TX. WILL CONTINUE TO MONITOR.
[2018-08-04] MEDS: NORTRIPTYLINE HCL 10 MG CAPSULE PO SCH (21:42)
[2018-08-04] MEDS: MIRTAZAPINE 15 MG TABLET PO SCH (21:42)
[2018-08-04] MEDS: OLANZAPINE 5 MG TABLET PO SCH (21:42)
[2018-08-04] MEDS: LORAZEPAM INJ 2 MG/ML VIAL IV PRN (22:45)
[2018-08-05] VITALS (95 sets, daily range): BP systolic 52–128; BP diastolic 26–90
[2018-08-05] MEDS: IPRATROPIUM NEB FS 0.5 MG/2.5 ML AMPUL.NEB NEB SCH ×4 (01:02→19:38)
--- NOTE | 2018-08-05 01:38 | NUR ---
PT PLACED ON SM 6L DO TO LOW O2 SAT. SX'D FOR LARGE AMT OF THIN FROTHY TINGED SECRETIONS. RN NOTIFIED.
[2018-08-05 02:01] LABS: ABG BASE EXCESS 0.5 mmol/L; ABG OXYGEN SATURATION 95.6 % (92.0-98.5); ABG PCO2 59.1 mmHg (35.0-45.0); ABG PH 7.292 (7.350-7.450); ABG PO2 98.6 mmHg (75.0-100.0); AaDO2 147.8 mmHg; COHb 0.3 % (0.5-1.5); MetHb 0.6 % (0.0-1.5); O2Hb 94.7 % (94.0-97.0); SITE, ABG Right Radial; VENT MODE, BG SM
--- NOTE | 2018-08-05 02:02 | NUR ---
ABG DONE. RN NOTIFIED WITH THE RESULT.
--- NOTE | 2018-08-05 02:15 | NUR ---
RN NOTES PATIENT NOTED WITH CRACKLES ON LUNG AUSCULTATION, NOTED LABORED BREATHING. HOB ELEVATED AT 40 DEGREES. ABG DONE WITH PH = 7.29, PCO2 = 59.1 AND HCO3 27.9/ O2 SAT 98% ON 6LPM SIMPLE MASK. SBP AROUND 85 TO 110 ON 14MCG OF LEVOPHED. NOTIFIED DR DYE. SUGGESTED BIPAP AND/OR LASIX. DR DYE ORDER TO PUT PATIENT ON BIPAP THEN RECHECK ABG AFTER 2 HOURS OF PUTTING THE BIPAP. ORDERS NOTED AND CARRIED OUT.
--- NOTE | 2018-08-05 02:28 | NUR ---
PT PLACED ON BIPAP PER MD ORDER POST ABG RESULTS. WITH CHARTED SETTINGS. AMBU BAG AT BEDSIDE. ALARMS SET AND AUDIBLE. PLUGGED INTO RED OUTLET. Addendum: 08/05/18 at 0230 by TRISH ARIAS RT Amended: Links added.
[2018-08-05 05:00] LABS: CALCIUM, SERUM 8.6 mg/dL (8.5-10.1); CARBON DIOXIDE 29 mmol/L (21-32); CHLORIDE 112 mmol/L (98-107); CREATININE 1.1 mg/dL (0.6-1.3); GLUCOSE 166 mg/dL (74-106); POTASSIUM 3.9 mmol/L (3.5-5.1); SODIUM SERUM 148 mmol/L (136-145); UREA NITROGEN, BLOOD 47 mg/dL (7-18)
[2018-08-05 05:01] LABS: ABG BASE EXCESS 3.2 mmol/L; ABG OXYGEN SATURATION 91.6 % (92.0-98.5); ABG PCO2 47.5 mmHg (35.0-45.0); ABG PH 7.398 (7.350-7.450); ABG PO2 68.3 mmHg (75.0-100.0); AaDO2 89.8 mmHg; COHb 0.3 % (0.5-1.5); MetHb 0.5 % (0.0-1.5); O2Hb 90.9 % (94.0-97.0)
--- NOTE | 2018-08-05 05:02 | NUR ---
PT POST ABG ON BIPAP DONE. NOTIFIED RN WITH THE RESULT.
[2018-08-05] MEDS: PIPERACILLIN /TAZOBACTAM 3.375 G in IV D5W 50 ML IV SCH ×3 (05:32→17:51)
[2018-08-05 09:31] LABS: ABG BASE EXCESS 1.9 mmol/L; ABG PCO2 39.4 mmHg (35.0-45.0); ABG PO2 56.1 mmHg (75.0-100.0); AaDO2 111.5 mmHg; COHb 0.3 % (0.5-1.5); MetHb 0.6 % (0.0-1.5); O2Hb 87.2 % (94.0-97.0); SITE, ABG Right Radial
[2018-08-05] MEDS: LEVOTHYROXINE SODIUM 50 MCG TABLET PO SCH (09:58)
[2018-08-05] MEDS: PANTOPRAZOLE 40 MG VIAL IV SCH (09:58)
[2018-08-05] MEDS: DULOXETINE HCL 30 MG CAPSULE.DR GT SCH (09:58)
[2018-08-05] MEDS: LamoTRIgine 100 MG TABLET PO SCH ×2 (09:58→17:50)
[2018-08-05] MEDS: TAMSULOSIN 0.4 MG CAP.SR.24H PO SCH (09:58)
[2018-08-05] MEDS: ACIDOPHILUS/BULGARICUS 1 EACH TAB.CHEW NG SCH ×2 (09:58→17:50)
[2018-08-05] MEDS: ASPIRIN 81 MG TAB.CHEW NG SCH (09:58)
[2018-08-05] MEDS: HYDROCORTISONE SOD SUCCINATE 100 MG/2 ML VIAL IV SCH ×3 (09:58→17:50)
[2018-08-05] MEDS: prednisoLONE ACET 1% OPHT DROP 5 ML BOTTLE EACHEYE SCH ×4 (09:59→21:53)
[2018-08-05] MEDS: TIMOLOL 0.5% SOLN OPHTH 5 ML BOTTLE EACHEYE SCH ×2 (09:59→17:51)
[2018-08-05] MEDS: DAKINS QUARTER STRENGTH (0.125%) 480 ML BOTTLE TOP SCH (10:00)
--- NOTE | 2018-08-05 10:35 | NUR ---
PT GRADUALLY LESS RESPONSIVE, ASSESSED BY DR. DIAMOND, BASED ON PREVIOUS CONVERSATION WITH HIS IT IS OK TO RE-INTUBATE. PT PREMEDICATED FOR INTUBATION WITH 20MG OF ETOMIDATE AND 100 OF SUCCINYL. PT INTUBATED AT [address] MILNER. ETT 7.5 24 CM. BILATERAL BREATH SOUNDS +. CXR PENDING.
[2018-08-05] MEDS: PROPOFOL 100 ML IV PRN ×2 (11:21→19:03)
[2018-08-05 11:56] LABS: ABG BASE EXCESS 3.3 mmol/L; ABG OXYGEN SATURATION 98.4 % (92.0-98.5); ABG PCO2 55.2 mmHg (35.0-45.0); ABG PH 7.349 (7.350-7.450); AaDO2 419.8 mmHg; COHb 0.3 % (0.5-1.5); MetHb 0.8 % (0.0-1.5); O2Hb 97.3 % (94.0-97.0); PEEP,BG 0 cm H2O; SITE, ABG Right Radial; VENT MODE, BG AC 16 450 1005 +0; VT, ABG 450 mL
[2018-08-05] MEDS: NOREPINEPHRINE 16 MG in IV D5W 500 ML IV PRN (12:41)
[2018-08-05] MEDS: IV NS 0.9% 250 ML IV PRN (12:46)
--- NOTE | 2018-08-05 18:16 | NUR ---
RT END OF THE SHIFT REPORT: PT. 78 Y OLD MALE REC. ON BIPAP WITH NOTED SETTINGS, POST ABG @ [address] DIAMOND AT THE BEDSIDE. 23/03, FIO2 50% @1032 X3 RT AT THE BEDSIDE. ASSIST ER FOR INTUBATION ETT# 7.5 @ 24 CM LIPLINE PLACED ON VENT WITH NOTED SETTINGS, SX'D FOR MOD AMT OF THICK/THIN RED BLOODY SECRETIONS. VENT ALARMS SET AND FUNCTIONAL. B/S RALES BILATERALLY, VENT CHANGES DONE PER DR. DIAMOND ORDER, AND RN INFORMED ALL THE CHANGES. AMBU BAG AT BEDSIDE. VENT PLUGGED INTO RED OUTLET. HME CHANGED, PT. REMAIN STABLE. WILL CONTINUE TO MONITOR. REPORT WILL PASS TO PM SHIFT. Addendum: 08/05/18 at 1821 by CHANCE CHATMAN RT Amended: Links added.
[2018-08-05] MEDS: JEVITY 1.2 CAL 1,000 ML BOTTLE GT PRN (19:03)
--- NOTE | 2018-08-05 20:32 | NUR ---
RECEIVED PT INTUBATED WITH 7.5 ETT SECURED @24CM AT THE LIP VIA ANCHOR FAST. PT TOLERATING VENT SETTINGS. SX'D FOR MOD AMT OF THIN TINGED FROTHY SECRETIONS. VENT ALARMS SET AND AUDIBLE. AMBU BAG AT BEDSIDE. WILL CONTINUE TO MONITOR. Addendum: 08/05/18 at 2033 by LUZ MARINA TALLEY RT Amended: Links added.
[2018-08-05] MEDS: OLANZAPINE 5 MG TABLET PO SCH (21:53)
[2018-08-05] MEDS: NORTRIPTYLINE HCL 10 MG CAPSULE PO SCH (21:54)
[2018-08-05] MEDS: MIRTAZAPINE 15 MG TABLET PO SCH (21:54)
[2018-08-06] VITALS (110 sets, daily range): BP systolic 90–118; BP diastolic 35–80
[2018-08-06] MEDS: PIPERACILLIN /TAZOBACTAM 3.375 G in IV D5W 50 ML IV SCH ×4 (00:17→17:22)
[2018-08-06] MEDS: NOREPINEPHRINE 16 MG in IV D5W 500 ML IV PRN ×3 (00:33→18:55)
[2018-08-06] MEDS: IPRATROPIUM NEB FS 0.5 MG/2.5 ML AMPUL.NEB NEB SCH ×4 (00:49→19:48)
[2018-08-06 04:56] LABS: BASOPHILS % (AUTO) 0.2 % (0.0-2.0); EOSINOPHILS % (AUTO) 0.1 % (0.0-6.0); HEMATOCRIT 27 % (39-51); HEMOGLOBIN 8.9 g/dL (13.5-17.5); LYMPHOCYTES % (AUTO) 22.2 % (20.0-44.0); MEAN CORPUSCULAR HGB CONC 33 g/dl (31.0-36.0); MEAN CORPUSCULAR VOLUME 110 fL (80-96); MONOCYTES # (AUTO) 0.6 /CMM (0.1-1.30); MONOCYTES % (AUTO) 13.7 % (2.0-12.0); NEUTROPHILS # (AUTO) 2.9 /CMM (1.8-8.9); NEUTROPHILS % (AUTO) 63.8 % (43.0-81.0); PLATELET COUNT (AUTO) 205 /CMM (150-450); RDW COEFFICIENT OF VARIATION 15.5 (11.5-15.0); RED BLOOD CELL COUNT(AUTO) 2.46 MIL/uL (4.5-6.0); WHITE BLOOD COUNT (AUTO) 4.5 K/uL (4.3-11.0)
[2018-08-06 04:58] LABS: CALCIUM, SERUM 7.8 mg/dL (8.5-10.1); CARBON DIOXIDE 27 mmol/L (21-32); CHLORIDE 111 mmol/L (98-107); CREATININE 1.1 mg/dL (0.6-1.3); GLUCOSE 235 mg/dL (74-106); MAGNESIUM 2.4 mg/dL (1.8-2.4); PHOSPHORUS 3.3 mg/dL (2.5-4.9); POTASSIUM 3.1 mmol/L (3.5-5.1); SODIUM SERUM 149 mmol/L (136-145); UREA NITROGEN, BLOOD 47 mg/dL (7-18)
[2018-08-06] MEDS: PROPOFOL 100 ML IV PRN ×4 (05:23→18:59)
[2018-08-06 05:57] LABS: BAND % (MANUAL) 3 % (0.0-5.0); LYMPHOCYTES % (MANUAL) 19 % (16-48); MONOCYTES % (MANUAL) 14 % (0-11.0); NEUTROPHILS % (MANUAL) 60 (42-76); REACTIVE LYMPHOCYTES 4 % (0-0)
[2018-08-06] MEDS: LEVOTHYROXINE SODIUM 50 MCG TABLET PO SCH (06:30)
[2018-08-06] MEDS: PANTOPRAZOLE 40 MG VIAL IV SCH (06:30)
--- NOTE | 2018-08-06 07:30 | NUR ---
PATIENT SINUS TACHYCARDIA WITH BBB ON TELE MONITOR 119
--- NOTE | 2018-08-06 07:30 | NUR ---
PT REMAINS INTUBATED ON AC MODE, SATS CONSISTENTLY > 97%.CONTINUES TO TOLERATE FDG. TITRATING DIPRIVAN/LEVOPHED GTTS ORDERED. . CHECKED F/C BALLON AND U/O IMPROVED. RHYTHM REMAINS IN ST WITH PVCS.
[2018-08-06] MEDS ORDERED: POTASSIUM CHLORIDE 20 MEQ TAB.PRT.SR PO ONE (08:30)
--- NOTE | 2018-08-06 08:30 | NUR ---
DR HARRELL NOTIFIED THAT VTACH OF 3 BEATS NOTED DURING BIOMETRICIAN PER TELE MONITOR. DR HARRELL ALSO NOTIFIED THAT CURRENT TELE READING IS SINUS TACHYCARDIA WITH BBB AND PVCS
[2018-08-06] MEDS: POTASSIUM CHLORIDE 20 MEQ POWDER PACKET GT SCH ×3 (08:52→11:12)
[2018-08-06] MEDS: HYDROCORTISONE SOD SUCCINATE 100 MG/2 ML VIAL IV SCH ×3 (08:54→16:37)
[2018-08-06] MEDS ORDERED: POTASSIUM CL. PREMIX PERIPHER. 50 ML IV SCH (09:00)
[2018-08-06 09:06] LABS: ABG BASE EXCESS 3.9 mmol/L; ABG OXYGEN SATURATION 96.4 % (92.0-98.5); ABG PCO2 44.9 mmHg (35.0-45.0); ABG PH 7.426 (7.350-7.450); COHb 0.3 % (0.5-1.5); MetHb 0.7 % (0.0-1.5); O2Hb 95.4 % (94.0-97.0); SITE, ABG Right Radial; VENT MODE, BG AC 16 500 50% +0
[2018-08-06] MEDS: LamoTRIgine 100 MG TABLET PO SCH ×2 (09:06→16:45)
[2018-08-06] MEDS: ACIDOPHILUS/BULGARICUS 1 EACH TAB.CHEW NG SCH ×2 (09:07→16:45)
[2018-08-06] MEDS: DULOXETINE HCL 30 MG CAPSULE.DR GT SCH (09:07)
[2018-08-06] MEDS: ASPIRIN 81 MG TAB.CHEW NG SCH (09:09)
[2018-08-06] MEDS: DAKINS QUARTER STRENGTH (0.125%) 480 ML BOTTLE TOP SCH (09:09)
[2018-08-06] MEDS: TAMSULOSIN 0.4 MG CAP.SR.24H PO SCH (09:09)
[2018-08-06] MEDS: JEVITY 1.2 CAL 1,000 ML BOTTLE GT PRN (09:19)
[2018-08-06] MEDS: prednisoLONE ACET 1% OPHT DROP 5 ML BOTTLE EACHEYE SCH ×4 (09:37→21:07)
[2018-08-06] MEDS: TIMOLOL 0.5% SOLN OPHTH 5 ML BOTTLE EACHEYE SCH ×2 (09:40→16:42)
--- NOTE | 2018-08-06 09:40 | NUR ---
SEDATION VACATION SEDATION VACATION TITRATION PER PROTOCOL. PATIENT AROUSABLE TO NAME AND TOUCH. FOLLOWING COMMANDS BY OPENING EYES. ABLE TO MOVE EXTREMITIES SLIGHTLY WHEN ASKED. HOWEVER, SEVERE WEAKNESS NOTED.COUGH AND GAG REFLEX NOTED. PATIENT ORIENTED TO SITUATION, TIME, PLACE, AND ENVIRONMENT. TITRATION DONE PER PROTOCOL. SEE IV SPREADSHEET. SEDATION CONTINUED AND TITRATED UP NO PLANS OF WEANING TODAY PER DR DIAMOND
--- NOTE | 2018-08-06 10:24 | NUR ---
PER DR HARRELL, DISCONTINUE POTASSIUM ORDER OF 40 MEQ . ADMINISTER POTASSIUM REPLACEMENT PER DR AIRAM DEMARCO
[2018-08-06] MEDS: IV NS 0.9% 250 ML IV PRN (11:11)
[2018-08-06] MEDS: BISACODYL SUPP (10 MG) 10 MG/SUPP.RECT SUPP.RECT RC PRN (16:08)
--- NOTE | 2018-08-06 17:15 | NUR ---
RT NOTE: PATIENT RECEIVED ORALLY INTUBATED WITH 7.5 ETT SECURED AT 24 CM ON PB 840 VENT. ETT MOVED FROM LEFT TO RIGHT VIA ANCHOR FAST. ALARMS VERIFIED AND AUDIBLE. SUCTIONED AND LAVAGED SMALL-MODERATE THIN BLOODY SECRETIONS. NURSE AWARE. VENT PLUGGED INTO RED OUTLET. AMBU BAG AT [facility].
--- NOTE | 2018-08-06 18:00 | NUR ---
RN CLOSING NOTES: PATIENT RESTING IN BED. NONLABORED BREATHING NOTED ON CURRENT VENT SETTINGS. ET TUBE 2.7 AT 24 CM AT LIP. PATIENT CURRENTLY ON 40MC/KG/MIN PROPOFOL PER ORDERS, ON LEVOPHED 24 MC/MIN PER ORDERS FOR BP MAINTENANCE PICCLINE ON RIGHT UPPER ARM PATENT AND INTACT. VERDUZCO CATHETER PATENT AND INTACT WITH JANET CLEAR COLORED URINE DRAINING. GTUBE PATENT AND INTACT WITH NO RESIDUALS. ASPIRATION AND FALL PRECAUTIONS MAINTAINED DURING SHIFT. BED IN LOWEST LOCKED POSITION. CALL LIGHT WITHIN REACH. BISACODYL ADMINISTERED FOR CONSTIPATION. NO BOWEL MOVEMENT YET. PATIENT CURRENTLY SINUS TACHY WITH HR 110-120, BBB AND PVCS NOTED. PATIENT KEPT CLEAN AND DRY DURING SHIFT. TURNED AND REPOSITIONED EVERY 2 HOURS WILL ENDORSE TO NEXT SHIFT
--- NOTE | 2018-08-06 19:30 | NUR ---
ADJUNCT PROFESSOR: RECEIVED ORALLY INTUBATED PT TO [facility]. VENT WT SETTINGS ORDERED. NO ACUTE DISTRESS. NO EVIDENCE OF DISCOMFORT. SEDATED ON DIPRIVAN AT 40MCG/KG/MIN, WITHDRAWS TO LOCALIZED PAIN. ST ON MONITOR WT BBB AND OCCASIONAL PVCs. AFEBRILE. RT. NGT PLACEMENT VERIFIED AND RUNNING JEVITY 2.2 AT 55ML/HR WT NO RESIDUAL. JW PICC LINE ALSO INFUSING LEVOPHED AT 24MCG/MIN FOR BP SUPPORT AND ONE PORT TKO. NO S/S OF COMPLICATIONS. F/C PATENT AND INTACT DRAINING JANET COLORED URINE TO GRAVITY. HOB AT 35 DEGREES. SAFETY AND ASPIRATION PRECAUTION NOTED. WILL CONTINUE TO MONITOR.
--- NOTE | 2018-08-06 19:48 | NUR ---
RECEIVED PT ORALLY INTUBATED WITH 7.5 ETT SECURED @24CM AT THE LIP VIA ANCHOR FAST. PT TOLERATING VENT SETTINGS. Q6 BREATHING TX GIVEN ORDERED. NO ADVERSE REACTION NOTED. SX'D MOD AMT OF PALE YELLOW SECRETIONS. VENT ALARMS SET AND AUDIBLE. AMBU BAG AT BEDSIDE. WILL CONTINUE TO MONITOR. Addendum: 08/07/18 at 0508 by ALEKSANDRA BECKER RT SUCTIONED MODERATE AMOUNT OF PALE YELLOW SECRETIONS WITH BLOOD TINGED.
[2018-08-06] MEDS: MIRTAZAPINE 15 MG TABLET PO SCH (21:11)
[2018-08-06] MEDS: OLANZAPINE 5 MG TABLET PO SCH (21:11)
[2018-08-06] MEDS: NORTRIPTYLINE HCL 10 MG CAPSULE PO SCH (21:11)
--- NOTE | 2018-08-06 23:30 | NUR ---
AUDIT LEAD: HAD BOWEL MOVEMENT. STOOL FOR OCCULT BLOOD COLLECTED. BED BATH GIVEN AND TOLERATED WELL.
[2018-08-07] VITALS (107 sets, daily range): BP systolic 87–122; BP diastolic 61–81
[2018-08-07] MEDS: PIPERACILLIN /TAZOBACTAM 3.375 G in IV D5W 50 ML IV SCH ×5 (00:07→23:58)
[2018-08-07] MEDS: IPRATROPIUM NEB FS 0.5 MG/2.5 ML AMPUL.NEB NEB SCH ×4 (00:54→19:45)
[2018-08-07] MEDS: PROPOFOL 100 ML IV PRN ×4 (01:47→18:27)
[2018-08-07 04:30] LABS: BASOPHILS # (AUTO) 0.1 /CMM (0.0-0.2); BASOPHILS % (AUTO) 1.1 % (0.0-2.0); EOSINOPHILS % (AUTO) 0.1 % (0.0-6.0); HEMATOCRIT 28 % (39-51); HEMOGLOBIN 8.9 g/dL (13.5-17.5); LYMPHOCYTES # (AUTO) 1.5 /CMM (0.8-4.8); LYMPHOCYTES % (AUTO) 21.7 % (20.0-44.0); MEAN CORPUSCULAR HGB CONC 32 g/dl (31.0-36.0); MEAN CORPUSCULAR VOLUME 109 fL (80-96); MONOCYTES # (AUTO) 0.9 /CMM (0.1-1.30); MONOCYTES % (AUTO) 13.3 % (2.0-12.0); NEUTROPHILS # (AUTO) 4.4 /CMM (1.8-8.9); NEUTROPHILS % (AUTO) 63.8 % (43.0-81.0); PLATELET COUNT (AUTO) 212 /CMM (150-450); RED BLOOD CELL COUNT(AUTO) 2.54 MIL/uL (4.5-6.0); WHITE BLOOD COUNT (AUTO) 6.9 K/uL (4.3-11.0)
[2018-08-07 04:48] LABS: CALCIUM, SERUM 7.5 mg/dL (8.5-10.1); GLUCOSE 206 mg/dL (74-106); UREA NITROGEN, BLOOD 41 mg/dL (7-18)
[2018-08-07 05:03] LABS: CARBON DIOXIDE 28 mmol/L (21-32); CHLORIDE 110 mmol/L (98-107); MAGNESIUM 2.4 mg/dL (1.8-2.4); PHOSPHORUS 3.1 mg/dL (2.5-4.9); POTASSIUM 3.5 mmol/L (3.5-5.1); SODIUM SERUM 147 mmol/L (136-145)
[2018-08-07] MEDS: NOREPINEPHRINE 16 MG in IV D5W 500 ML IV PRN ×3 (05:22→23:59)
--- NOTE | 2018-08-07 06:20 | NUR ---
BRICKMASON APPRENTICE: NO SIGNIFICANT AMPARO DURING THE SHIFT. GTF TOLERATING WELL. STILL ON LEVOPHED AT 24MCG/MIN AND DIPRIVAN AT 40MCG/MIN. VS WITHIN PT's BASELINE. SAFETY AND ASPIRATION PRECAUTIONS NOTED AT ALL TIMES.
[2018-08-07 07:39] LABS: OCCULT BLOOD STOOL NEGATIVE (NEGATIVE)
[2018-08-07] MEDS: IV NS 0.9% 250 ML IV PRN (07:40)
[2018-08-07] MEDS: JEVITY 1.2 CAL 1,000 ML BOTTLE GT PRN (07:41)
[2018-08-07] MEDS: PANTOPRAZOLE 40 MG VIAL IV SCH (07:54)
[2018-08-07] MEDS: LEVOTHYROXINE SODIUM 50 MCG TABLET PO SCH (07:54)
[2018-08-07] MEDS: prednisoLONE ACET 1% OPHT DROP 5 ML BOTTLE EACHEYE SCH ×4 (08:35→21:55)
[2018-08-07] MEDS: HYDROCORTISONE SOD SUCCINATE 100 MG/2 ML VIAL IV SCH ×3 (08:36→16:07)
[2018-08-07] MEDS: ACIDOPHILUS/BULGARICUS 1 EACH TAB.CHEW NG SCH ×2 (08:40→16:00)
[2018-08-07] MEDS: ASPIRIN 81 MG TAB.CHEW NG SCH (08:41)
[2018-08-07] MEDS: DULOXETINE HCL 30 MG CAPSULE.DR GT SCH (08:41)
[2018-08-07] MEDS: LamoTRIgine 100 MG TABLET PO SCH ×2 (08:41→16:01)
[2018-08-07] MEDS: TAMSULOSIN 0.4 MG CAP.SR.24H PO SCH (08:42)
[2018-08-07] MEDS: TIMOLOL 0.5% SOLN OPHTH 5 ML BOTTLE EACHEYE SCH ×2 (08:49→16:06)
[2018-08-07] MEDS: DAKINS QUARTER STRENGTH (0.125%) 480 ML BOTTLE TOP SCH (08:50)
--- NOTE | 2018-08-07 09:50 | NUR ---
SEDATION VACATION SEDATION VACATION TITRATION PER PROTOCOL. PATIENT AROUSABLE TO NAME AND TOUCH. FOLLOWING COMMANDS BY OPENING EYES. ABLE TO MOVE EXTREMITIES SLIGHTLY WHEN ASKED.COUGH AND GAG REFLEX NOTED. PATIENT ORIENTED TO SITUATION, TIME, PLACE, AND ENVIRONMENT. TITRATION DONE PER PROTOCOL. SEE IV SPREADSHEET. SEDATION CONTINUED AND TITRATED UP NO PLANS OF WEANING TODAY PER DR DIAMOND
[2018-08-07 10:19] LABS: ABG OXYGEN SATURATION 94.8 % (92.0-98.5); ABG PH 7.427 (7.350-7.450); ABG PO2 82.1 mmHg (75.0-100.0); AaDO2 189.8 mmHg; COHb 0.2 % (0.5-1.5); MetHb 0.5 % (0.0-1.5); O2Hb 94.1 % (94.0-97.0); PEEP,BG 0 cm H2O; SITE, ABG Right Radial; VT, ABG 500 mL
--- NOTE | 2018-08-07 17:53 | NUR ---
PER DR DIAMOND, CANCEL ABG AND XRAY ORDERS FOR PATIENT FOR THE NEXT FEW DAYS PLAN IS TO EXTUBATE PATIENT TOMORROW PER FAMILY WISHES. SPOKE WITH AND CONFIRMED WISHES
--- NOTE | 2018-08-07 19:30 | NUR ---
SAWSMITH INITIAL NOTE RECEIVED PATIENT SEDATED, NO S/S OF PAIN OR DISCOMFORT. NO RESPIRATORY DISTRESS NOTED. ETT 7.5/24CM AT THE LIP, WITH VENT SETTINGS AC 16, TV 500, FIO2 45%, PEEP 0, SPO2 100%. WITH RIGHT NARE NGT PATENT AND INTACT, IN PLACE, NO RESIDUALS NOTED, TOLERATING GTF. ON TELE MONITOR SINUS TACH WITH BBB AND FIRST DEGREE. F/C PATENT, INTACT, DRAINING BY GRAVITY. WITH JW PICC LINE PATENT AND INTACT, WITH TKO, LEVO AT 24 MCG/MIN, AND DIPRIVAN AT 40 MCG/KG/MIN. HOB ELEVATED. SIDE RAILS UP AND LOCKED. BED KEPT AT LOWEST POSITION. WILL CONTINUE TO MONITOR.
--- NOTE | 2018-08-07 19:40 | NUR ---
RN CLOSING NOTES: PATIENT RESTING IN BED. NONLABORED BREATHING NOTED ON CURRENT VENT SETTINGS. ET TUBE 2.7 AT 24 CM AT LIP. PATIENT CURRENTLY ON 40MC/KG/MIN PROPOFOL PER ORDERS, ON LEVOPHED 24 MC/MIN PER ORDERS FOR BP MAINTENANCE PICCLINE ON RIGHT UPPER ARM PATENT AND INTACT. VERDUZCO CATHETER PATENT AND INTACT WITH JANET CLEAR COLORED URINE DRAINING. GTUBE PATENT AND INTACT WITH NO RESIDUALS. ASPIRATION AND FALL PRECAUTIONS MAINTAINED DURING SHIFT. BED IN LOWEST LOCKED POSITION. CALL LIGHT WITHIN REACH. PATIENT CURRENTLY SINUS TACHY WITH HR 110-120, BBB AND PVCS NOTED. PATIENT KEPT CLEAN AND DRY DURING SHIFT. TURNED AND REPOSITIONED EVERY 2 HOURS ENDORSED TO SALEEM RN
[2018-08-07] MEDS: OLANZAPINE 5 MG TABLET PO SCH (21:54)
[2018-08-07] MEDS: NORTRIPTYLINE HCL 10 MG CAPSULE PO SCH (21:54)
[2018-08-07] MEDS: MIRTAZAPINE 15 MG TABLET PO SCH (21:54)
[2018-08-08] VITALS (71 sets, daily range): BP systolic 42–203; BP diastolic 30–73
[2018-08-08] MEDS: PROPOFOL 100 ML IV PRN ×2 (00:57→09:58)
[2018-08-08] MEDS: IPRATROPIUM NEB FS 0.5 MG/2.5 ML AMPUL.NEB NEB SCH ×3 (01:36→13:41)
[2018-08-08] MEDS: JEVITY 1.2 CAL 1,000 ML BOTTLE GT PRN (04:30)
[2018-08-08 04:49] LABS: EOSINOPHILS % (AUTO) 0.1 % (0.0-6.0); HEMATOCRIT 28 % (39-51); HEMOGLOBIN 8.9 g/dL (13.5-17.5); LYMPHOCYTES # (AUTO) 1.4 /CMM (0.8-4.8); LYMPHOCYTES % (AUTO) 19.5 % (20.0-44.0); MEAN CORPUSCULAR HGB CONC 31 g/dl (31.0-36.0); MEAN CORPUSCULAR VOLUME 109 fL (80-96); MONOCYTES # (AUTO) 0.8 /CMM (0.1-1.30); NEUTROPHILS # (AUTO) 5.1 /CMM (1.8-8.9); NEUTROPHILS % (AUTO) 69.4 % (43.0-81.0); PLATELET COUNT (AUTO) 190 /CMM (150-450); RDW COEFFICIENT OF VARIATION 15.6 (11.5-15.0); WHITE BLOOD COUNT (AUTO) 7.3 K/uL (4.3-11.0)
[2018-08-08 04:55] LABS: CALCIUM, SERUM 7.4 mg/dL (8.5-10.1); CARBON DIOXIDE 28 mmol/L (21-32); CHLORIDE 107 mmol/L (98-107); GLUCOSE 195 mg/dL (74-106); MAGNESIUM 2.5 mg/dL (1.8-2.4); PHOSPHORUS 3.1 mg/dL (2.5-4.9); POTASSIUM 2.9 mmol/L (3.5-5.1); SODIUM SERUM 141 mmol/L (136-145); UREA NITROGEN, BLOOD 34 mg/dL (7-18)
[2018-08-08] MEDS: PIPERACILLIN /TAZOBACTAM 3.375 G in IV D5W 50 ML IV SCH ×3 (05:07→17:00)
[2018-08-08 06:08] LABS: LYMPHOCYTES % (MANUAL) 23 % (16-48); MONOCYTES % (MANUAL) 5 % (0-11.0); NEUTROPHILS % (MANUAL) 72 (42-76)
--- NOTE | 2018-08-08 06:54 | NUR ---
METAL GAUGE MAKER CLOSING NOTE NO SIGNIFICANT CHANGES OVERNIGHT. ALL DUE MEDS GIVEN. TOLERATING CURRENT VENT SETTINGS. TOLERATING GTF, NO RESIDUAL NOTED. F/C PATENT, INTACT, DRAINING BY GRAVITY. KEPT CLEAN AND DRY. TURNED AND REPOSITIONED Q2 AND PRN. JW PICC LINE PATENT AND INTACT, WITH TKO, DIPRIVAN AT 30MCG/KG/MIN, AND LEVO AT 22 MCG/MIN RUNNING. HOB ELEVATED. SIDE RAILS UP AND LOCKED. BED KEPT AT LOWEST POSITION. CONTINUITY OF CARE ENDORSED TO AM NURSE.
--- NOTE | 2018-08-08 08:09 | NUR ---
received pt from day shift, sedated on Diprivan at 30mcg, responds to pain stimuli, ST, BBB, receiving levo at 22mcg, on the vent, lungs congested, some BLE edema, NG to feeding tolerates well, f/c OK output, v/s stable, no pain, pt turned and repositioned.
[2018-08-08] MEDS: DULOXETINE HCL 30 MG CAPSULE.DR GT SCH (08:31)
[2018-08-08] MEDS: ASPIRIN 81 MG TAB.CHEW NG SCH (08:31)
[2018-08-08] MEDS: LEVOTHYROXINE SODIUM 50 MCG TABLET PO SCH (08:31)
[2018-08-08] MEDS: ACIDOPHILUS/BULGARICUS 1 EACH TAB.CHEW NG SCH ×2 (08:31→16:30)
[2018-08-08] MEDS: LamoTRIgine 100 MG TABLET PO SCH ×2 (08:31→16:30)
[2018-08-08] MEDS: PANTOPRAZOLE 40 MG VIAL IV SCH (08:31)
[2018-08-08] MEDS: HYDROCORTISONE SOD SUCCINATE 100 MG/2 ML VIAL IV SCH ×3 (08:31→16:30)
[2018-08-08] MEDS: TAMSULOSIN 0.4 MG CAP.SR.24H PO SCH (08:31)
[2018-08-08] MEDS: DAKINS QUARTER STRENGTH (0.125%) 480 ML BOTTLE TOP SCH (08:32)
[2018-08-08] MEDS: TIMOLOL 0.5% SOLN OPHTH 5 ML BOTTLE EACHEYE SCH ×2 (08:33→16:30)
[2018-08-08] MEDS: prednisoLONE ACET 1% OPHT DROP 5 ML BOTTLE EACHEYE SCH ×4 (08:33→21:21)
[2018-08-08] MEDS: POTASSIUM CHLORIDE 20 MEQ POWDER PACKET GT SCH ×6 (11:01→15:01)
[2018-08-08] MEDS: NOREPINEPHRINE 16 MG in IV D5W 500 ML IV PRN (11:57)
--- NOTE | 2018-08-08 13:54 | NUR ---
pt is resting in the bed, v/s stable, no pain, pt turned and repositioned q2hrs.
--- NOTE | 2018-08-08 14:38 | NUR ---
PT TERMINALLY EXTUBATED PER MD ORDERS. PT PLACED ON 2LPM NASAL CANNULA. FAMILY AT THE BEDSIDE. DANIELLE PAIGE AND QUALITY ASSURANCE AUDITOR CECILE AT BEDSIDE. Addendum: 08/08/18 at 1700 by LEE JOSEPH RT WRONG TIME DOCUMENTED. PT EXTUBATED AT 1638
--- NOTE | 2018-08-08 14:55 | NUR ---
DR. DIAMOND SPOKE TO PATIENT AND DAUGHTER AT [facility] REGARDING CARE. FAMILY WISHES TO EXTUBATE WITH NO REINTUBATION. MORPHINE DRIP WAS ALSO DISCUSSED BY MD IF PATIENT WILL GET DISTRESSED AND FAMILY AGREED.
[2018-08-08] MEDS ORDERED: DC PROPOFOL WHEN EXTUBATED XX PRN (15:00)
[2018-08-08] MEDS: LORAZEPAM INJ 2 MG/ML VIAL IV PRN (15:38)
[2018-08-08] MEDS: MORPHINE SULFATE INJ 4 MG/ML DISP.SYRIN IV PRN (15:38)
--- NOTE | 2018-08-08 16:08 | NUR ---
code status change to DNR/DNI, pt is off of Diprivan and Levophed per Dr Jonas's orders and terminal extubation, family at the bedside.
[2018-08-08] MEDS: MORPHINE SULFATE PF DRIP 250 MG in IV D5W 240 ML IV PRN (16:17)
--- NOTE | 2018-08-08 16:30 | NUR ---
pt is terminally extubated.
--- NOTE | 2018-08-08 16:44 | NUR ---
pt started on morphine drip at 5mg/hr
[2018-08-08] MEDS: MIRTAZAPINE 15 MG TABLET PO SCH (21:18)
[2018-08-08] MEDS: NORTRIPTYLINE HCL 10 MG CAPSULE PO SCH (21:18)
[2018-08-08] MEDS: OLANZAPINE 5 MG TABLET PO SCH (21:19)
[2018-08-09] VITALS (10 sets, daily range): BP systolic 30–99; BP diastolic 23–35
[2018-08-09] MEDS: PIPERACILLIN /TAZOBACTAM 3.375 G in IV D5W 50 ML IV SCH ×2 (00:18→05:06)
[2018-08-09 05:24] LABS: CALCIUM, SERUM 7.9 mg/dL (8.5-10.1); CARBON DIOXIDE 30 mmol/L (21-32); CHLORIDE 112 mmol/L (98-107); CREATININE 1.2 mg/dL (0.6-1.3); GLUCOSE 171 mg/dL (74-106); POTASSIUM 5.5 mmol/L (3.5-5.1); SODIUM SERUM 145 mmol/L (136-145); UREA NITROGEN, BLOOD 42 mg/dL (7-18)
--- NOTE | 2018-08-09 06:56 | NUR ---
RN NOTES PATIENT RECEIVED AT AROUND 2200 WITH UNSTABLE VITAL SIGNS. DNR/DNI. FEEDING STOPPED DUE TO LOW BP, HOB DOWN. FAMILY AT BEDSIDE. WILL BE DISCHARGE TO MED SURG PER MD'S ORDER. KEPT CLEAN AND DRY. WILL ENDORSE TO AM SHIFT FOR CONTINUITY OF CARE.
--- NOTE | 2018-08-09 07:10 | NUR ---
RN INITIAL NOTES: Rec'd pt on bed, agonal breather while on NC at 2lpm, sating at 99%. On telemonitor, SR 90bpm. Has NGT on R nare, GTF clamped at this time. BP unappreciated. Has FC draining to BSB. Has JW PICC line, TLC, w/ MoSO4 drip at 5mg/hr infusing well, no s/sx of infection/infiltration noted. Pt is DNR/DNI at this time. Awaiting for family re: transition to comfort care?. Provided comfort & safety measures. Will continue to monitor & attend pt needs.
[2018-08-09] MEDS: LEVOTHYROXINE SODIUM 50 MCG TABLET PO SCH (08:20)
[2018-08-09] MEDS: ACIDOPHILUS/BULGARICUS 1 EACH TAB.CHEW NG SCH (08:20)
[2018-08-09] MEDS: ASPIRIN 81 MG TAB.CHEW NG SCH (08:20)
[2018-08-09] MEDS: LamoTRIgine 100 MG TABLET PO SCH (08:20)
[2018-08-09] MEDS: PANTOPRAZOLE 40 MG VIAL IV SCH (08:20)
[2018-08-09] MEDS: DULOXETINE HCL 30 MG CAPSULE.DR GT SCH (08:20)
[2018-08-09] MEDS: HYDROCORTISONE SOD SUCCINATE 100 MG/2 ML VIAL IV SCH (08:20)
[2018-08-09] MEDS: TAMSULOSIN 0.4 MG CAP.SR.24H PO SCH (08:20)
[2018-08-09] MEDS: DAKINS QUARTER STRENGTH (0.125%) 480 ML BOTTLE TOP SCH (08:21)
[2018-08-09] MEDS: Z GUARD REMEDY 2 OZ OINT TP PRN (08:21)
[2018-08-09] MEDS: prednisoLONE ACET 1% OPHT DROP 5 ML BOTTLE EACHEYE SCH (08:40)
[2018-08-09] MEDS: TIMOLOL 0.5% SOLN OPHTH 5 ML BOTTLE EACHEYE SCH (08:41)
--- NOTE | 2018-08-09 08:41 | NUR ---
Spoke w/ pt's & dtr at bedside, agreed for comfort measures only.
--- NOTE | 2018-08-09 09:15 | NUR ---
Pt seen & examined by Dr. Jonas. spoke w/ family at bedside, aware of the comfort measure code status. MD ordered to DC all meds except Morphine Drip (keep at 10 mg/hr for now).
[2018-08-09] MEDS: MORPHINE SULFATE PF DRIP 250 MG in IV D5W 240 ML IV PRN (16:53)
--- NOTE | 2018-08-09 18:30 | NUR ---
PLASTERER SPOT NOTES: Pt transferred to MS 324/1 as ordered for comfort care via bed accompanied by RN and family. Report given to DANIELLE Pennington. JW PICC line, TLC, all flushing well, no s/sx of infection/infiltration noted, dressing is C/D/I, w/ MoSO4 Drip at 10mg/hr infusing well (narcotic drip form placed in the chart). NGT removed. FC kept patent & intact draining to BSB. No personal belongings noted. No concerns/issues identified during transfer. VS as follows: BP unappreciated, HR 78bpm (NSR w/ BBB), RR 11, O2 sat at 95% while on NC 2lpm.
--- NOTE | 2018-08-09 18:30 | NUR ---
MS RN NOTES RECEIVED PATIENT FROM ICU REPORT GIVEN BY BAILEY. PATIENT OBTUNDED, APPEARS COMFORTABLE, NO FACIAL GRIMACING NOTED. NO ACUTE DISTRESS NOTED. VERDUZCO CATHETER INTACT, DRAINING WELL. ON MORPHINE DRIP INFUSING WELL, IV ACCESS PATENT AND INTACT. FAMILY AT BEDSIDE. WILL CONTINUE TO MONITOR ACCORDINGLY.WILL ENDORSE TO NIGHT NURSE FOR CONTINUITY OF CARE.
--- NOTE | 2018-08-09 19:00 | NUR ---
RN OPENING NOTES PT OBTUNDED. FAMILY AT BEDSIDE. PT ON COMFORT MEASURES ONLY. MORPHINE DRIP IN PLACE RUNNING 10MG/HR. RESPIRATIONS 10-11 PER MINUTE. PT ON 2L 02 VIA NASAL CANNULA. NO APPARENT S/S OF PAIN OR DISTRESS AT THIS TIME. SAFETY PRECAUTIONS IN PLACE. WILL CONTINUE TO MONITOR.
[2018-08-09] MEDS ORDERED: KEY,NONCONTROL,TO KEEP IN PYXI 1 EA MC ONE (21:12)
--- NOTE | 2018-08-09 23:18 | NUR ---
RN NOTES PATIENT AT 2038, VERIFIED WITH CHARGE NURSE CAROLINE, NO PUPILLARY RESPONSE, NO RESPIRATIONS, NO HEARTBEAT. DR ERNANDEZ PAGED AT 2042. FAMILY NOTIFIED AT 2044. AND DAUGHTER STATED THAT THEY WOULD BE THERE SOON THEY COULD BE. FAMILY ARRIVED 2114 AND SIGNED ALL PAPERWORK. 2134, [facility] NOTIFIED ([facility]). AT 2127, [facility] NOTIFIED . AT 2229, [facility] ARRIVED TO BRANCH ACCOUNT MANAGER PATIENT. FAMILY LEFT THE UNIT AT THIS TIME. NO BELONGINGS WERE WITH PATIENT ON UNIT.
== END 2018-08-09 20:39 | disposition expired | DRG 870 ==
LOC: ER 22:13 → ICU 22:38 → MED 08-09 18:24
PROVIDERS: ADMIT Internal Medicine; ATTEND Internal Medicine
PROC: 0BH17EZ Insertion of Endotracheal Airway into Trachea, Via Natural or Artificial Opening (ICD-10-PCS; 2018-07-27)
PROC: 02HV33Z Insertion of Infusion Device into Superior Vena Cava, Percutaneous Approach (ICD-10-PCS; principal; 2018-07-28)
PROC: 5A1955Z Respiratory Ventilation, Greater than 96 Consecutive Hours (ICD-10-PCS; principal; 2018-07-28)
PROC: B548ZZA Ultrasonography of Superior Vena Cava, Guidance (ICD-10-PCS; principal; 2018-07-28)
PROC: 5A09357 Assistance with Respiratory Ventilation, Less than 24 Consecutive Hours, Continuous Positive Airway Pressure (ICD-10-PCS; 2018-08-05)
PROC: 5A1945Z Respiratory Ventilation, 24-96 Consecutive Hours (ICD-10-PCS; 2018-08-05)
PROC: 0BH17EZ Insertion of Endotracheal Airway into Trachea, Via Natural or Artificial Opening (ICD-10-PCS; 2018-08-05)
DX: A41.9 Sepsis, unspecified organism (principal); R65.21 Severe sepsis with septic shock; J69.0 Pneumonitis due to inhalation of food and vomit; J96.01 Acute respiratory failure with hypoxia; J96.02 Acute respiratory failure with hypercapnia; I21.A1 Myocardial infarction type 2; E43 Unspecified severe protein-calorie malnutrition; J96.22 Acute and chronic respiratory failure with hypercapnia; J96.21 Acute and chronic respiratory failure with hypoxia; N17.0 Acute kidney failure with tubular necrosis; I50.21 Acute systolic (congestive) heart failure; J44.1 Chronic obstructive pulmonary disease with (acute) exacerbation; J44.0 Chronic obstructive pulmonary disease with (acute) lower respiratory infection; E87.1 Hypo-osmolality and hyponatremia; E87.2 Acidosis; D68.59 Other primary thrombophilia; J98.11 Atelectasis; J90 Pleural effusion, not elsewhere classified; L97.819 Non-pressure chronic ulcer of other part of right lower leg with unspecified severity; K86.1 Other chronic pancreatitis; K86.2 Cyst of pancreas; L97.329 Non-pressure chronic ulcer of left ankle with unspecified severity; E87.4 Mixed disorder of acid-base balance; J84.9 Interstitial pulmonary disease, unspecified; Z51.5 Encounter for palliative care; D47.2 Monoclonal gammopathy; E03.9 Hypothyroidism, unspecified; F17.210 Nicotine dependence, cigarettes, uncomplicated; E87.6 Hypokalemia; E83.51 Hypocalcemia; G20 Parkinson's disease; K21.9 Gastro-esophageal reflux disease without esophagitis; M19.90 Unspecified osteoarthritis, unspecified site; Z90.49 Acquired absence of other specified parts of digestive tract; D72.819 Decreased white blood cell count, unspecified; E78.5 Hyperlipidemia, unspecified; E83.39 Other disorders of phosphorus metabolism; F31.9 Bipolar disorder, unspecified; D53.9 Nutritional anemia, unspecified; I73.9 Peripheral vascular disease, unspecified; I71.4 Abdominal aortic aneurysm, without rupture; E88.09 Other disorders of plasma-protein metabolism, not elsewhere classified; F41.9 Anxiety disorder, unspecified; N20.0 Calculus of kidney; Z88.2 Allergy status to sulfonamides; I25.10 Atherosclerotic heart disease of native coronary artery without angina pectoris; Z68.20 Body mass index [BMI] 20.0-20.9, adult; Z85.810 Personal history of malignant neoplasm of tongue; R73.9 Hyperglycemia, unspecified; E86.1 Hypovolemia; G89.29 Other chronic pain; M80.88XS Other osteoporosis with current pathological fracture, vertebra(e), sequela
CPT/HCPCS: 31720; 36415; 36569; 36600; 71045-TC; 80048-TC; 80053-TC; 80061-TC; 80076-TC; 80202-TC; 81000-TC; 82272-TC; 82533; 82550-TC; 82570-TC; 82803-TC; 83540-TC; 83605-TC; 83735-TC; 83880; 83970; 84100-TC; 84155; 84155-TC; 84165; 84300-TC; 84443-TC; 84478-TC; 84484-TC; 85025-TC; 85378-TC; 85730-TC; 87040-TC; 87070-TC; 87081-TC; 87086-TC; 87400; 93307-TC; 93970-TC; 94002-TC; 94003-TC; 94760-TC; 94799-TC; A4606; A6402; A6403; C1751; C9113; J0330; J0456; J1250; J1265; J1720; J1940; J1956; J2060; J2270; J2274; J2543; J2930; J3370; J3475; J3480; J3490; J7030; J7042; J7050; J7060; Q9967; Z7610